=== PATIENT | male | born 1940 | race Caucasian/White ===

== ENCOUNTER 2022-09-14 15:16 | Inpatient (IN) | payer BC ==
[~2022-09-14] VITALS: Ht 185.4 cm; Wt 71.7 kg
--- NOTE | 2022-09-14 15:37 | NUR ---
pt in room. AMS, SOB on NONRebreather 15L sat 89%
--- NOTE | 2022-09-14 15:55 | NUR ---
SWAB FOR COVID19 SENT TO LAB
[2022-09-14] MEDS ORDERED: ACETAMINOPHEN 650 MG/SUPP.RECT RC ONE ×2 (15:58→16:00)
[2022-09-14] MEDS ORDERED: IV NS 0.9% 1,000 ML BAG IV ONE ×3 (16:00→19:00)
[2022-09-14 16:05] LABS: ABG BASE EXCESS -1.5 mmol/L; ABG PCO2 32.5 mmHg (35.0-45.0); ABG PH 7.441 (7.350-7.450); ABG PO2 107.1 mmHg (75.0-100.0); COHb 0.4 % (0.5-1.5); MetHb 0.5 % (0.0-1.5); O2Hb 97.2 % (94.0-97.0); SITE, ABG Right Radial; VENT MODE, BG NRB 100%
[2022-09-14 16:06] LABS: BASOPHILS % (AUTO) 0.3 % (0.0-2.0); EOSINOPHILS % (AUTO) 0.1 % (0.0-6.0); HEMATOCRIT 48 % (39-51); HEMOGLOBIN 15.6 g/dL (13.5-17.5); LYMPHOCYTES # (AUTO) 0.6 K/uL (0.8-4.8); LYMPHOCYTES % (AUTO) 5.2 % (20.0-44.0); MEAN CORPUSCULAR HGB CONC 33 g/dl (31.0-36.0); MEAN CORPUSCULAR VOLUME 86 fL (80-96); MONOCYTES # (AUTO) 0.6 K/uL (0.1-1.30); MONOCYTES % (AUTO) 4.7 % (2.0-12.0); NEUTROPHILS # (AUTO) 11.1 K/uL (1.8-8.9); NEUTROPHILS % (AUTO) 89.7 % (43.0-81.0); PLATELET COUNT (AUTO) 187 K/uL (150-450); RED BLOOD CELL COUNT(AUTO) 5.58 MIL/uL (4.5-6.0); WHITE BLOOD COUNT (AUTO) 12.3 K/uL (4.3-11.0)
[2022-09-14 16:29] LABS: CALCIUM, SERUM 9.6 mg/dL (8.5-10.1); CARBON DIOXIDE 27 mmol/L (21-32); CHLORIDE 107 mmol/L (98-107); CREATININE 1.7 mg/dL (0.6-1.3); GLUCOSE 115 mg/dL (74-106); POTASSIUM 4.5 mmol/L (3.5-5.1); SODIUM SERUM 141 mmol/L (136-145); UREA NITROGEN, BLOOD 30 mg/dL (7-18)
[2022-09-14 16:42] LABS: ALANINE AMINOTRANSFERASE 19 U/L (12-78); ALBUMIN 3.2 g/dL (3.4-5.0); ALKALINE PHOSPHATASE 71 U/L (46-116); ASPARTATE AMINOTRANSFERASE 23 U/L (15-37); BILIRUBIN,DIRECT 0.3 mg/dL (0.0-0.2); BILIRUBIN,TOTAL 1.9 mg/dL (0.2-1.0); TOTAL PROTEIN, SERUM 7.1 g/dL (6.4-8.2)
[2022-09-14] MEDS ORDERED: PIPERACILLIN /TAZOBACTAM 3.375 G in IV D5W 50 ML IV ONE (17:00)
[2022-09-14 17:21] LABS: BILIRUBIN,URINE 1+ (NEGATIVE); COLOR,URINE YELLOW (YELLOW); LEUKOCYTE ESTERASE ,URINE NEGATIVE (NEGATIVE); NITRITE, URINE NEGATIVE (NEGATIVE); PH,URINE 5.5 (5.0-8.0); PROTEIN,URINE 1+ mg/dl (NEGATIVE); UGLUCOSE NEGATIVE (NEGATIVE); UROBILINOGEN,URINE 0.2 EU/dL (0.2)
--- NOTE | 2022-09-14 17:25 | NUR ---
called nursing sup rearding pt bed
[2022-09-14] MEDS ORDERED: MAGNESIUM HYDROXIDE 30 ML UDC PO PRN (18:00)
[2022-09-14] MEDS ORDERED: MAG HYDROX/AL HYDROX/SIMETH 30 ML UDC PO PRN (18:00)
[2022-09-14] MEDS ORDERED: ZOLPIDEM TARTRATE 5 MG TABLET PO PRN (18:00)
[2022-09-14] MEDS ORDERED: ACETAMINOPHEN 325 MG TABLET PO PRN (18:00)
[2022-09-14] MEDS ORDERED: Z GUARD REMEDY 4 OZ OINT TP PRN (18:00)
[2022-09-14] MEDS ORDERED: ONDANSETRON HCL/PF 4 MG/2 ML VIAL IVP PRN (18:00)
[2022-09-14 18:05] LABS: BACTERIA,URINE RARE /HPF (None Seen); RBC,URINE 0-2 /HPF (0-2); URINE AMORPHOUS URATE Few /HPF (None Seen); WBC,URINE 0-2 /HPF (0-3)
--- NOTE | 2022-09-14 18:41 | NUR ---
Holliday Cath inserted 15f
--- NOTE | 2022-09-14 18:49 | NUR ---
room 326 after shift change
[2022-09-14] MEDS ORDERED: KETOROLAC TROMETHAMINE INJ 30 MG/ML VIAL IV ONE (19:00)
[2022-09-14] MEDS ORDERED: KETOROLAC TROMETHAMINE INJ 30 MG/ML VIAL ONE (19:02)
[2022-09-14] MEDS: NOREPINEPHRINE 8 MG in IV NS 0.9% 242 ML IV PRN (19:21)
--- NOTE | 2022-09-14 20:16 | NUR ---
REPORT GIVEN TO QUINTEN NOONAN ICU ROOM 262 FOR TALYA
--- NOTE | 2022-09-14 20:45 | NUR ---
PATIENT TRANSFERED AND ADMITTED PER ACLS PROTOCOL
[2022-09-14 21:15] VITALS: BP 118/59
[2022-09-14] MEDS ORDERED: MAGN400O6 PO (21:19)
[2022-09-14] MEDS ORDERED: TAMS-12 PO (21:19)
[2022-09-14] MEDS ORDERED: MELO-107 PO (21:19)
[2022-09-14] MEDS ORDERED: SENN-291 PO (21:19)
[2022-09-14] MEDS ORDERED: ACET-73 PO (21:19)
[2022-09-14] MEDS ORDERED: FINA5TAB3 PO (21:19)
[2022-09-14] MEDS ORDERED: SIME80TA15 PO (21:19)
[2022-09-14] MEDS ORDERED: POLY17PO4 PO (21:19)
[2022-09-14] MEDS: ENOXAPARIN SODIUM 30 MG/0.3 ML DISP.SYRIN SQ SCH (21:23)
[2022-09-14] MEDS: IV NS 0.9% 250 ML IV PRN (21:26)
[2022-09-14 21:35] VITALS: BP 99/48
[2022-09-14 21:45] VITALS: BP 134/63
[2022-09-14 22:00] VITALS: BP 121/61
[2022-09-14 22:15] VITALS: BP 126/55
--- NOTE | 2022-09-14 22:35 | NUR ---
FIRE PATROL. ADMISSION. PT BEING ADMITTED FROM ICU FOR ASPIRATION PNA, SEPSIS. PT IA AWAKE. LETHARGIC. OXYGEN NONREBREATHER. SAT 99%. NO ACUTE DISTRESS NOTED. CVARDIAC MONITOR SHOWING NSR. IV RT AND LT HAD PIV. LEVOPHED STARTED FROM ER. 0.1 MCG/KG/MIN FC PATENT. HOB ELEVATED. WILL CONTINUE TO MONITOR VITALS
[2022-09-14 23:00] VITALS: BP 110/51
[2022-09-15] VITALS (90 sets, daily range): BP systolic 84–155; BP diastolic 14–87
[2022-09-15] MEDS: PIPERACILLIN /TAZOBACTAM 3.375 G in IV D5W 50 ML IV SCH ×4 (00:23→17:03)
--- NOTE | 2022-09-15 03:45 | NUR ---
TRIPE COOKER. AM CARE GIVEN. REMAINING SAMR OXYGEN TOLERATED WELL. SAT 98%, NO ACUTE DISTRESS NOTED. REFRIGERATION LEAD SHOWING NSR.IV RT HAND 20G. LEVOPHED 0.04MCG/KG/MIN. HOB ELEVATED, TURN AND REPOSITION Q2H. WILL CONTINUE TO MONITOR VITALS.
[2022-09-15 05:11] LABS: BASOPHILS % (AUTO) 0.1 % (0.0-2.0); EOSINOPHILS % (AUTO) 0.1 % (0.0-6.0); HEMATOCRIT 39 % (39-51); HEMOGLOBIN 12.6 g/dL (13.5-17.5); LYMPHOCYTES # (AUTO) 1.2 K/uL (0.8-4.8); LYMPHOCYTES % (AUTO) 7.8 % (20.0-44.0); MEAN CORPUSCULAR HGB CONC 32 g/dl (31.0-36.0); MEAN CORPUSCULAR VOLUME 86 fL (80-96); MONOCYTES # (AUTO) 0.9 K/uL (0.1-1.30); MONOCYTES % (AUTO) 5.7 % (2.0-12.0); NEUTROPHILS # (AUTO) 13.3 K/uL (1.8-8.9); NEUTROPHILS % (AUTO) 86.3 % (43.0-81.0); PLATELET COUNT (AUTO) 172 K/uL (150-450); RED BLOOD CELL COUNT(AUTO) 4.53 MIL/uL (4.5-6.0); WHITE BLOOD COUNT (AUTO) 15.4 K/uL (4.3-11.0)
[2022-09-15 05:14] LABS: CALCIUM, SERUM 8.8 mg/dL (8.5-10.1); CARBON DIOXIDE 20 mmol/L (21-32); CHLORIDE 111 mmol/L (98-107); CREATININE 1.7 mg/dL (0.6-1.3); GLUCOSE 117 mg/dL (74-106); MAGNESIUM 1.6 mg/dL (1.8-2.4); PHOSPHORUS 3.9 mg/dL (2.5-4.9); POTASSIUM 4.3 mmol/L (3.5-5.1); SODIUM SERUM 141 mmol/L (136-145); UREA NITROGEN, BLOOD 36 mg/dL (7-18)
--- NOTE | 2022-09-15 07:30 | NUR ---
RN OPENING NOTE PT RECEIVED IN BED WITH HOB >30 DEGREES. PT IS ON 10L NON REBREATHER O2 SAT 100% TOLERATING WELL NO SIGNS OF DISTRESS OR LABORED BREATHING. PT IS A/OX3. FC IS IN PLACE DRAINING HEMATURIA AT THIS TIME. IV ACCESS R RIVERA 20G AND L AC 20 G INFUSING WITH LEVO @0.05MCG. BED IS LOCKED IN LOWEST POSITION, CALL CANCINO IS WITHIN REACH AND ALL HOSPITAL SAFETY MEASURES ARE IN PLACE. WILL CONTINUE TO MONITOR THIS SHIFT.
--- NOTE | 2022-09-15 07:40 | NUR ---
WOUND CARE CONSULT: PT PRESENTS WITH LEFT CHEEK DRY LESION AND SACRAL STAGE 3 PRESSURE ULCER, PRESENT ON ADMISSION. DR PEARCE CALLED FOR SURGICAL CONSULT. DISCUSSED WOUND CARE AND SKIN PROTECTION RECOMMENDATIONS WITH NURSING STAFF. IN AGREEMENT WITH PLAN OF CARE. Addendum: 09/15/22 at 0741 by TWAN BINGHAM WNDNU Amended: Links added. Addendum: 09/15/22 at 0743 by TWAN BINGHAM WNDNU PT STATES HAS HAD SACRAL WOUND FOR MORE THAN 6 MONTHS AND IS BEDBOUND.
--- NOTE | 2022-09-15 08:00 | NUR ---
RN NOTE: CODE STATUS PT IS A/OX3 AND STATED THAT HE WISHES TO BE DNR/DNI. PROVIDER HAS BEEN NOTIFIED OF PATIENT'S WISHES.
[2022-09-15 08:36] LABS: ABG BASE EXCESS -5.9 mmol/L; ABG OXYGEN SATURATION 99.2 % (92.0-98.5); ABG PCO2 28.6 mmHg (35.0-45.0); ABG PH 7.402 (7.350-7.450); ABG PO2 211.1 mmHg (75.0-100.0); AaDO2 473.3 mmHg; COHb 0.2 % (0.5-1.5); MetHb 0.3 % (0.0-1.5); O2Hb 98.7 % (94.0-97.0); SITE, ABG Right Radial; VENT MODE, BG NRB 15 LPM
--- NOTE | 2022-09-15 08:48 | NUR ---
RN NOTE: CODE STATUS PT SPOKE WITH MD AND STATES HE WISHES TO REMAIN FULL CODE AT THIS TIME.
[2022-09-15] MEDS ORDERED: ENOXAPARIN SODIUM 30 MG/0.3 ML DISP.SYRIN IV ONE (09:00)
[2022-09-15] MEDS: Magnesium 1GM/D5W 100ML PREMIX 100 ML IV SCH ×2 (09:01→10:02)
[2022-09-15] MEDS: methylPREDNISolone SOD SUCC 40 MG/ML VIAL IV SCH ×2 (09:40→17:03)
[2022-09-15] MEDS: THERAHONEY GEL 1.5 OZ TUBE TP SCH (09:40)
[2022-09-15] MEDS: IV NS 0.9% 1,000 ML IV PRN ×2 (09:54→18:09)
[2022-09-15] MEDS: IPRATROPIUM NEB FS 0.5 MG/2.5 ML AMPUL.NEB NEB SCH ×3 (10:00→20:07)
[2022-09-15] MEDS ORDERED: MENT71OI2 TP (10:16)
[2022-09-15] MEDS: NOREPINEPHRINE 8 MG in IV NS 0.9% 242 ML IV PRN (13:28)
--- NOTE | 2022-09-15 13:28 | NUR ---
RN NOTE: IV FLUIDS PER DR. MARRUFO, CHANGE NS TO 100ML/HR
--- NOTE | 2022-09-15 15:00 | NUR ---
RN NOTE: SPECIMEN COLLECTED INFLUENZA RAPID ANTIGEN SPECIMEN COLLECTED AT THIS TIME AND DELIVERED TO LAB
[2022-09-15] MEDS: PROSOURCE / PROSTAT (PYXIS) 30 ML UDC GT SCH (17:00)
[2022-09-15] MEDS: ENSURE ENLIVE 237 ML LIQUID (VANILLA) PO SCH (17:03)
[2022-09-15] MEDS: IV NS 0.9% 250 ML IV PRN (18:08)
--- NOTE | 2022-09-15 18:47 | NUR ---
RN CLOSING NOTE PT IS IN BED WITH HOB >40DEGREES. PT IS ON NC 4 L SAT 100% TOLERATING WELL NO SIGNS OF DISTRESS OR LABORED BREATHING. PT IS A/OX3 AND IS NOW ON A PUREE DIET. FC IS IN PLACE DRAINING HEMATURIA AT THIS TIME -800ML MD IS AWARE. IV ACCESS R RIVERA 20G AND L AC 20 G INFUSING WITH LEVO @0.02MCG AND NS@100ML/HR. BED IS LOCKED IN LOWEST POSITION, CALL CANCINO IS WITHIN REACH AND ALL HOSPITAL SAFETY MEASURES ARE IN PLACE. WILL ENDORSE TO AUCTIONEER ART NURSE FOR TALYA.
--- NOTE | 2022-09-15 19:30 | NUR ---
PT AWAKE IN BED A/OX3. WITH HOB >40DEGREES. PT IS ON NC 4 L SAT 100%. TOLERATING WELL, NOT IN DISTRESS, RESPIRATION EVEN AND UNLABORED, ON A PUREE DIET. FC IS IN PLACE DRAINING HEMATURIA AT THIS TIME, IS AWARE. IV ACCESS R RIVERA 20G AND L AC 20 G INFUSING LEVO @ 0.02MCG AND NS@100ML/HR. SAFETY MEASURES IN PLACE. CALL LIGHT AND TABLE WITHIN REACH. WILL CONTINUE PLAN OF CARE.
[2022-09-15] MEDS: ENOXAPARIN SODIUM 30 MG/0.3 ML DISP.SYRIN SQ SCH (20:23)
[2022-09-16] VITALS (46 sets, daily range): BP systolic 84–145; BP diastolic 36–79
[2022-09-16] MEDS: PIPERACILLIN /TAZOBACTAM 3.375 G in IV D5W 50 ML IV SCH ×4 (00:03→17:00)
[2022-09-16] MEDS: methylPREDNISolone SOD SUCC 40 MG/ML VIAL IV SCH ×3 (01:10→16:22)
[2022-09-16] MEDS: IPRATROPIUM NEB FS 0.5 MG/2.5 ML AMPUL.NEB NEB SCH ×4 (01:52→19:37)
[2022-09-16 04:09] LABS: BASOPHILS % (AUTO) 0.1 % (0.0-2.0); HEMATOCRIT 34 % (39-51); HEMOGLOBIN 11.4 g/dL (13.5-17.5); LYMPHOCYTES # (AUTO) 0.6 K/uL (0.8-4.8); LYMPHOCYTES % (AUTO) 7.2 % (20.0-44.0); MEAN CORPUSCULAR HGB CONC 33 g/dl (31.0-36.0); MEAN CORPUSCULAR VOLUME 86 fL (80-96); MONOCYTES # (AUTO) 0.3 K/uL (0.1-1.30); MONOCYTES % (AUTO) 4.1 % (2.0-12.0); NEUTROPHILS # (AUTO) 7.2 K/uL (1.8-8.9); NEUTROPHILS % (AUTO) 88.6 % (43.0-81.0); PLATELET COUNT (AUTO) 117 K/uL (150-450); RED BLOOD CELL COUNT(AUTO) 3.98 MIL/uL (4.5-6.0); WHITE BLOOD COUNT (AUTO) 8.1 K/uL (4.3-11.0)
[2022-09-16] MEDS: IV NS 0.9% 1,000 ML IV PRN ×2 (04:19→14:07)
[2022-09-16 04:27] LABS: ALANINE AMINOTRANSFERASE 13 U/L (12-78); ALBUMIN 2.2 g/dL (3.4-5.0); ALKALINE PHOSPHATASE 47 U/L (46-116); ASPARTATE AMINOTRANSFERASE 42 U/L (15-37); BILIRUBIN,TOTAL 1.4 mg/dL (0.2-1.0); CALCIUM, SERUM 9.3 mg/dL (8.5-10.1); CARBON DIOXIDE 21 mmol/L (21-32); CHLORIDE 111 mmol/L (98-107); CREATININE 1.4 mg/dL (0.6-1.3); GLUCOSE 130 mg/dL (74-106); MAGNESIUM 2.3 mg/dL (1.8-2.4); PHOSPHORUS 3.2 mg/dL (2.5-4.9); POTASSIUM 4.4 mmol/L (3.5-5.1); SODIUM SERUM 141 mmol/L (136-145); TOTAL PROTEIN, SERUM 5.3 g/dL (6.4-8.2); UREA NITROGEN, BLOOD 32 mg/dL (7-18)
--- NOTE | 2022-09-16 07:15 | NUR ---
COMPUTER SYSTEMS HARDWARE ANALYST OPENING NOTES RECEIVED PT ASLEEP IN BED A/OX3. WITH HOB >40DEGREES. PT IS ON NC AT 3LPM. 02SAT AT 100%. TOLERATING WELL, NOT IN DISTRESS, RESPIRATION EVEN AND UNLABORED, DENIES ANY PAIN. FC IS IN PLACE DRAINING WITH TEA COLORED URINE. IV ACCESS ON RT HAND 20G, JESUS ML 18G. INFUSING LEVO @ 0.01MCG/KG/MIN AND NS@100ML/HR. ON TELE MONITOR WITH SB HR 50'S. SAFETY MEASURES MAINTAINED. CALL LIGHT AND TABLE WITHIN REACH. PLAN OF CARE CONTINUE.
--- NOTE | 2022-09-16 07:37 | NUR ---
PT ASLEEP IN BED A/OX3. WITH HOB >40DEGREES. PT IS ON NC AT 3LPM. 02SAT AT 100%. TOLERATING WELL, NOT IN DISTRESS, RESPIRATION EVEN AND UNLABORED, ON A PUREE DIET. FC IS IN PLACE DRAINING HEMATURIA AT THIS TIME, MD IS AWARE. IV ACCESS ON RT HAND 20G, JESUS ML 18G. INFUSING LEVO @ 0.01MCG/KG/MIN AND NS@100ML/HR. NEEDS ATTENDED. DUE MEDS GIVEN. SAFETY MEASURES MAINTAINED. CALL LIGHT AND TABLE WITHIN REACH. WILL ENDORSE TO NEXT NURSE ON DUTY FOR CONTINUITY OF CARE.
--- NOTE | 2022-09-16 07:45 | NUR ---
DR. MARRUFO AT BEDSIDE, WITH ORDER THAT PATIENT DIET CAN BE ADVANCED TO MECHANICAL SOFT FINELY CHOPPED, NOTED AND CARRIED OUT.
--- NOTE | 2022-09-16 08:00 | NUR ---
TURN OFF LEVO BP 140'S.
[2022-09-16] MEDS: THERAHONEY GEL 1.5 OZ TUBE TP SCH (08:02)
[2022-09-16] MEDS: ENSURE ENLIVE 237 ML LIQUID (VANILLA) PO SCH ×2 (08:06→16:19)
[2022-09-16] MEDS: PROSOURCE / PROSTAT (PYXIS) 30 ML UDC GT SCH ×2 (08:12→16:19)
--- NOTE | 2022-09-16 09:03 | NUR ---
PATIENT FINISHED 75% OF THE BREAKFAST, TOLERATED MECHANICAL SOFT FINELY CHOPPED AND THIN LIQUIDS, PATIENT IS ALERT AND VERBALLY RESPONSIVE, NO ESPIODE OF COUGHING NOTED.
--- NOTE | 2022-09-16 09:58 | NUR ---
SEEN BY ST DAVIL[facility], PATIENT TOLERATED THIN LIQUID, NO COUGHING NOTED.
[2022-09-16] MEDS ORDERED: POLYVINYL ALCOHOL 15 ML BOTTLE EACHEYE PRN ×2 (10:30)
--- NOTE | 2022-09-16 10:30 | NUR ---
INFORMED DR. MARRUFO THAT PATIENT IS HAVING DRY EYES, PATIENT STATED HE USES ARTIFICIAL TEARS, WITH NEW ORDER FROM DR. MARRUFO ARTIFICIAL TEARS PRN, NOTED AND CARRIED OUT.
--- NOTE | 2022-09-16 15:51 | NUR ---
RECEIVED RESULT FROM [facility] PATIENT IS POSITIVE FOR MRSA OF THE RIGHT NARES, BACTRORAN OINTMENT ORDER PLACED.
--- NOTE | 2022-09-16 17:55 | NUR ---
ORAL SURGERY PHYSICIAN NOTES PT AWAKE IN BED A/OX3. WITH HOB >40DEGREES. PT IS ON NC AT 2LPM. 02SAT AT 98-99%, TOLERATING WELL, NOT IN DISTRESS, RESPIRATION EVEN AND UNLABORED, DENIES ANY PAIN. FC IS IN PLACE DRAINING WITH TEA COLORED URINE. IV ACCESS ON RT HAND 20G, JESUS ML 18G, INFUSING NS@100ML/HR. ON TELE MONITOR WITH SB HR 50'S. SAFETY MEASURES MAINTAINED. CALL LIGHT AND TABLE WITHIN REACH. PLAN OF CARE CONTINUE.
--- NOTE | 2022-09-16 18:00 | NUR ---
LIBRARY MONITOR NOTES RECEIVED PT FROM HOGSHEAD MAT INSPECTOR LUZ BYRD VIA BED, PT IS AWAKE, ALERT AND ORIENTED, ABLE TO MAKE NEEDS KNOWN, NO COMPLAINT OF PAIN, NOT IN DISTRESS, ON O2 AT 2LPM VIA NASAL CANULA WITH O2 SAT OF 95%, DYKES IN PLACE, DRAINING TEA COLORED URINE, ROOM SET UP ORIENTATION PROVIDED, VERBALIZED UNDERSTANDING, VITALS TAKEN AND RECORDED.
--- NOTE | 2022-09-16 18:00 | NUR ---
TRANSFERRED PATIENT TO [facility] DEPT ROOM 327 BED 1 VIA ACLS PROTOCOL, GAVE REPORT TO KIMO NOONAN, TRANSFERRED PATIENT WITH ALL HIS PERSONAL BELONGINGS AND MEDICATIONS.
--- NOTE | 2022-09-16 19:05 | NUR ---
FRONT OFFICE SPEC OPENING NOTE PT IS SITTING IN THE BED, ALERT AND ORIENTED, AO X 4. PT IS ON 1 LPM OXYGEN VIA NC, TOLERATED WELL. NO S/S OF DISTRESS OR SOB. PT IS ON EXTERNAL STACKING MACHINE OPERATOR, ON THE MONITOR, PT IS SB WITH HR AT 40S. IV ACCESS ONE IS AT HIS R HAND, #20G, SL. ANOTHER ONE IS AT HIS L UA, MID-LINE, #18G, RUNNING NS@100 ML/HR. BOTH IV SITES ARE PATENT AND INTACT. PT HAS DYKES CATHETER, DRAINING YASHIRA COLOR URINE FREELY BY THE GRAVITY. SAFETY MEASURES ARE IN PLACED: BED IN LOWEST AND LOCKED POSITION; SIDE RAILS UP X 3; BED ALARM IS SET; CALL LIGHT AND TABLE ARE WITHIN REACH. WILL CONTINUE MONITORING THE PT AND PROVIDE THE CARE PT NEEDS.
[2022-09-16] MEDS: MUPIROCIN OINT 2% 22 GM TUBE NS SCH (20:12)
[2022-09-16] MEDS: ENOXAPARIN SODIUM 30 MG/0.3 ML DISP.SYRIN SQ SCH (20:14)
[2022-09-17] VITALS (7 sets, daily range): BP systolic 106–144; BP diastolic 62–81
[2022-09-17] MEDS: PIPERACILLIN /TAZOBACTAM 3.375 G in IV D5W 50 ML IV SCH ×4 (00:17→17:14)
[2022-09-17] MEDS: methylPREDNISolone SOD SUCC 40 MG/ML VIAL IV SCH ×2 (00:38→08:39)
--- NOTE | 2022-09-17 00:50 | NUR ---
SUPPLIES PACKER NOTE PT STATES HE NEEDS SLEEPING PILL. CONTACTED Georgie ISAACS AND RECEIVED ORDER.
[2022-09-17] MEDS: IPRATROPIUM NEB FS 0.5 MG/2.5 ML AMPUL.NEB NEB SCH ×4 (01:30→20:22)
[2022-09-17] MEDS: TEMAZEPAM 15 MG CAPSULE PO PRN ×2 (01:38→22:10)
--- NOTE | 2022-09-17 01:40 | NUR ---
CARE COORDINATOR NOTE PRN PO MEDICATION, RESTORIL 15 MG, ADMINISTERED TO THE PT FOR INSOMNIA PER PT REQUEST.
[2022-09-17 06:20] LABS: HEMATOCRIT 35 % (39-51); HEMOGLOBIN 11.5 g/dL (13.5-17.5); LYMPHOCYTES # (AUTO) 0.6 K/uL (0.8-4.8); MEAN CORPUSCULAR HGB CONC 33 g/dl (31.0-36.0); MEAN CORPUSCULAR VOLUME 88 fL (80-96); MONOCYTES # (AUTO) 0.2 K/uL (0.1-1.30); MONOCYTES % (AUTO) 5.2 % (2.0-12.0); NEUTROPHILS # (AUTO) 3.5 K/uL (1.8-8.9); NEUTROPHILS % (AUTO) 80.8 % (43.0-81.0); PLATELET COUNT (AUTO) 115 K/uL (150-450); RED BLOOD CELL COUNT(AUTO) 4.03 MIL/uL (4.5-6.0); WHITE BLOOD COUNT (AUTO) 4.3 K/uL (4.3-11.0)
--- NOTE | 2022-09-17 07:03 | NUR ---
SOCIAL WORK PROFESSOR CLOSING NOTE PT IS SITTING IN THE BED, ALERT AND ORIENTED, AO X 4. PT IS ON RA, TOLERATED WELL. NO S/S OF DISTRESS OR SOB. PT IS ON EXTERNAL PLC CONTROLS ENGINEER, ON THE MONITOR, PT IS SB WITH HR AT 40S. IV ACCESS ONE IS AT HIS R HAND, #20G, SL. ANOTHER ONE IS AT HIS L UA, MID-LINE, #18G, RUNNING NS@100 ML/HR. BOTH IV SITES ARE PATENT AND INTACT. PT HAS DYKES CATHETER, DRAINING YASHIRA COLOR URINE FREELY BY THE GRAVITY. URINE OUTPUT IS 400 DURING STERILIZATION TECH. SAFETY MEASURES ARE IN PLACED: BED IN LOWEST AND LOCKED POSITION; SIDE RAILS UP X 3; BED ALARM IS SET; CALL LIGHT AND TABLE ARE WITHIN REACH. WILL ENDORSE NEXT SHIFT NURSE FOR CONTINUING PT CARE.
[2022-09-17 07:08] LABS: CALCIUM, SERUM 9.3 mg/dL (8.5-10.1); CARBON DIOXIDE 20 mmol/L (21-32); CHLORIDE 112 mmol/L (98-107); CREATININE 1.1 mg/dL (0.6-1.3); GLUCOSE 131 mg/dL (74-106); POTASSIUM 4.2 mmol/L (3.5-5.1); SODIUM SERUM 141 mmol/L (136-145); UREA NITROGEN, BLOOD 36 mg/dL (7-18)
--- NOTE | 2022-09-17 07:45 | NUR ---
BRIM STITCHER OPENING NOTE PT SLEEPING IN THE BED, EASILY BEING AWAKENED, A/O X 4. PT IS ON RA, TOLERATED WELL. NO S/S OF DISTRESS OR SOB. PT IS ON EXTERNAL CRYPTOGRAPHIC VULNERABILITY ANALYST, READING SB @49BPM. IV ACCESS ONE IS AT HIS R HAND, #20G, SL. ANOTHER ONE IS AT HIS L UA, ML, #18G, RUNNING NS@100 ML/HR. BOTH IV SITES ARE PATENT AND INTACT. PT HAS DYKES CATHETER, DRAINING YASHIRA COLOR URINE BY THE GRAVITY. SAFETY MEASURES ARE IN PLACED: BED IN LOWEST AND LOCKED POSITION; SIDE RAILS UP X 3; BED ALARM IS SET; CALL LIGHT AND TABLE ARE WITHIN REACH. WILL CONTINUE MONITORING THE PT AND PROVIDE THE CARE PT NEEDS.
[2022-09-17] MEDS: ENSURE ENLIVE 237 ML LIQUID (VANILLA) PO SCH ×2 (08:38→16:30)
[2022-09-17] MEDS: PROSOURCE / PROSTAT (PYXIS) 30 ML UDC GT SCH ×2 (08:38→16:30)
[2022-09-17] MEDS: MUPIROCIN OINT 2% 22 GM TUBE NS SCH ×2 (08:39→21:16)
[2022-09-17] MEDS: THERAHONEY GEL 1.5 OZ TUBE TP SCH (10:34)
[2022-09-17] MEDS: IV NS 0.9% 1,000 ML IV PRN (12:43)
--- NOTE | 2022-09-17 18:35 | NUR ---
RESIDENTIAL FIELD MANAGER CLOSING NOTE PT IS RESTING IN THE BED, AO X 4. PT IS ON RA, TOLERATED WELL. NO S/S OF DISTRESS OR SOB. PT IS ON EXTERNAL NECK CUTTER, READING SR @76 BPM. IV ACCESS ONE IS AT HIS R HAND, #20G, SL. ANOTHER ONE IS AT HIS L UA, MID-LINE, #18G, RUNNING NS@100 ML/HR. BOTH IV SITES ARE PATENT AND INTACT. KEPT PT C/I/D. REPOSITIONED PT Q2H. PT HAS DYKES CATHETER, DRAINING YASHIRA COLOR URINE FREELY BY THE GRAVITY. URINE OUTPUT 500ML DURING SCIENTIFIC RESEARCH ASSOCIATE. SAFETY MEASURES ARE IN PLACED: BED IN LOWEST AND LOCKED POSITION; SIDE RAILS UP X 3; BED ALARM IS ON; CALL LIGHT AND TABLE ARE WITHIN REACH. WILL ENDORSE NEXT SHIFT NURSE FOR CONTINUING PT CARE.
--- NOTE | 2022-09-17 19:20 | NUR ---
EFFICIENCY ANALYST OPENING NOTE RECEIVED PATIENT IN BED; AWAKE, ALERT AND ORIENTED X 4. ON O2 INHALATION @ 2 LPM VIA NASAL CANNULA; TOLERATING WELL. AFEBRILE. BREATHING EVEN AND NONLABORED. ON EXTERNAL CARDIAC MONITORING WHICH READS SINUS BRADYCARDIA HR-46 BPM. WITH IV ACCESS ON RIGHT HAND 20g; PATENT, INTACT AND SL. WITH LEFT UPPER ARM MIDLINE 18g; PATENT AND INTACT RUNNING WITH NS 1L REGULATED @ 100 ML/HR; FLUSHES WELL. ABLE TO MAKE NEEDS KNOWN. SAFETY PRECAUTIONS IMPLEMENTED: CALL LIGHT AND TABLE WITHIN REACH, SIDE RAILS UP X 3, BED IN LOWEST LOCKED POSITION. WILL CONTINUE TO MONITOR THROUGHOUT SHIFT.
[2022-09-17] MEDS: ENOXAPARIN SODIUM 30 MG/0.3 ML DISP.SYRIN SQ SCH (21:42)
[2022-09-18] VITALS: BP 120/67
[2022-09-18] MEDS: PIPERACILLIN /TAZOBACTAM 3.375 G in IV D5W 50 ML IV SCH ×4 (00:01→17:10)
[2022-09-18] MEDS: IV NS 0.9% 1,000 ML IV PRN ×2 (00:09→10:52)
[2022-09-18] MEDS: IPRATROPIUM NEB FS 0.5 MG/2.5 ML AMPUL.NEB NEB SCH ×4 (01:12→20:28)
[2022-09-18 04:00] VITALS: BP 113/63
--- NOTE | 2022-09-18 06:40 | NUR ---
SOFTWARE VERIFICATION ENGINEER CLOSING NOTE PATIENT IN BED; AWAKE, A/O X 4. ON O2 INHALATION @ 2 LPM VIA NASAL CANNULA; TOLERATING WELL. AFEBRILE. BREATHING EVEN AND NONLABORED. ON EXTERNAL CARDIAC MONITORING WHICH READS SINUS BRADYCARDIA HR-46 BPM. WITH IV ACCESS ON RIGHT HAND 20g; PATENT, INTACT AND SL. WITH LEFT UPPER ARM MIDLINE 18g; PATENT AND INTACT RUNNING WITH NS 1L REGULATED @ 100 ML/HR; FLUSHES WELL. SAFETY PRECAUTIONS IN PLACE: CALL LIGHT AND TABLE WITHIN REACH, SIDE RAILS UP X 3, BED IN LOWEST LOCKED POSITION. ENDORSED TO MORNING SHIFT FOR TALYA.
[2022-09-18 06:57] LABS: HEMATOCRIT 33 % (39-51); HEMOGLOBIN 10.9 g/dL (13.5-17.5); LYMPHOCYTES # (AUTO) 0.8 K/uL (0.8-4.8); LYMPHOCYTES % (AUTO) 11.3 % (20.0-44.0); MEAN CORPUSCULAR HGB CONC 33 g/dl (31.0-36.0); MEAN CORPUSCULAR VOLUME 86 fL (80-96); MONOCYTES # (AUTO) 0.6 K/uL (0.1-1.30); MONOCYTES % (AUTO) 8.8 % (2.0-12.0); NEUTROPHILS # (AUTO) 5.5 K/uL (1.8-8.9); NEUTROPHILS % (AUTO) 79.9 % (43.0-81.0); PLATELET COUNT (AUTO) 130 K/uL (150-450); RED BLOOD CELL COUNT(AUTO) 3.87 MIL/uL (4.5-6.0); WHITE BLOOD COUNT (AUTO) 6.9 K/uL (4.3-11.0)
[2022-09-18 07:29] LABS: CARBON DIOXIDE 22 mmol/L (21-32); CHLORIDE 111 mmol/L (98-107); GLUCOSE 105 mg/dL (74-106); POTASSIUM 3.8 mmol/L (3.5-5.1); SODIUM SERUM 138 mmol/L (136-145); UREA NITROGEN, BLOOD 35 mg/dL (7-18)
--- NOTE | 2022-09-18 07:55 | NUR ---
WORKERS COMPENSATION ADJUSTER OPENING NOTE RECEIVED PATIENT IN BED; AWAKE, ALERT AND ORIENTED X 4. ABLE TO MAKE NEEDS KNOWN. ON O2 INHALATION @ 2 LPM VIA NASAL CANNULA; TOLERATING WELL. AFEBRILE. BREATHING EVEN AND NONLABORED. ON EXTERNAL SHOULDER JOINER READING SB @47 BPM. WITH IV ACCESS ON RIGHT HAND 20g; PATENT, INTACT AND SL. WITH LEFT UPPER ARM MIDLINE 18g; PATENT AND INTACT RUNNING WITH NS @ 100 ML/HR; FLUSHES WELL. SAFETY PRECAUTIONS IMPLEMENTED: CALL LIGHT AND TABLE WITHIN REACH, SIDE RAILS UP X 3, BED IN LOWEST LOCKED POSITION. WILL CONTINUE TO MONITOR THROUGHOUT SHIFT.
[2022-09-18] MEDS: PROSOURCE / PROSTAT (PYXIS) 30 ML UDC GT SCH ×2 (08:39→16:21)
[2022-09-18] MEDS: ENSURE ENLIVE 237 ML LIQUID (VANILLA) PO SCH ×2 (08:39→16:21)
[2022-09-18] MEDS: THERAHONEY GEL 1.5 OZ TUBE TP SCH (08:39)
[2022-09-18] MEDS: MUPIROCIN OINT 2% 22 GM TUBE NS SCH ×2 (08:39→21:50)
[2022-09-18] MEDS: methylPREDNISolone SOD SUCC 40 MG/ML VIAL IV SCH (08:40)
--- NOTE | 2022-09-18 18:38 | NUR ---
RN CLOSING NOTE PATIENT IN BED; AWAKE, A/O X 4. ON RA, BREATHING EVEN AND NONLABORED, TOLERATING WELL. AFEBRILE. DC TELE PER MD ORDER. WITH IV ACCESS ON RIGHT HAND 20g; PATENT, INTACT AND SL. WITH LEFT UPPER ARM MIDLINE 18g; PATENT AND INTACT RUNNING NS @ 100 ML/HR; FLUSHES WELL. WITH INTACT DYKES CATHETER, DRAINING WELL, YASHIRA COLOR, 600 ML URINE OUTPUT DURING THE SHIFT. SAFETY PRECAUTIONS IN PLACE: CALL LIGHT AND TABLE WITHIN REACH, SIDE RAILS UP X 3, BED IN LOWEST LOCKED POSITION. ENDORSED TO CATEGORY CONSULTANT FOR TALYA.
--- NOTE | 2022-09-18 19:25 | NUR ---
MS RN OPENING NOTE RECEIVED PATIENT IN BED; AWAKE, ALERT AND ORIENTED X 4. ON ROOM AIR; TOLERATING WELL. AFEBRILE. BREATHING EVEN AND NONLABORED. DENIES ANY PAIN OR DISCOMFORT AT THIS TIME. WITH IV ACCESS ON RIGHT HAND 20g; PATENT, INTACT AND SL. WITH LEFT UPPER ARM MIDLINE 18g; PATENT AND INTACT RUNNING WITH NS 1L REGULATED @ 100 ML/HR; FLUSHES WELL. WITH DYKES CATH IN PLACE RUNNING BY GRAVITY TO RED ORANGE URINE OUTPUT. ABLE TO MAKE NEEDS KNOWN. SAFETY PRECAUTIONS IMPLEMENTED: CALL LIGHT AND TABLE WITHIN REACH, SIDE RAILS UP X 3, BED IN LOWEST LOCKED POSITION. WILL CONTINUE TO MONITOR THROUGHOUT SHIFT.
[2022-09-18 20:00] VITALS: BP 112/59
[2022-09-18] MEDS: ENOXAPARIN SODIUM 30 MG/0.3 ML DISP.SYRIN SQ SCH (21:52)
[2022-09-18] MEDS: TEMAZEPAM 15 MG CAPSULE PO PRN (22:06)
[2022-09-19] MEDS: PIPERACILLIN /TAZOBACTAM 3.375 G in IV D5W 50 ML IV SCH ×3 (00:01→11:49)
[2022-09-19] MEDS: IV NS 0.9% 1,000 ML IV PRN (00:20)
[2022-09-19] MEDS: IPRATROPIUM NEB FS 0.5 MG/2.5 ML AMPUL.NEB NEB SCH ×3 (01:30→13:30)
--- NOTE | 2022-09-19 06:45 | NUR ---
MS RN CLOSING NOTE PATIENT IN BED; AWAKE, A/OX 4. STABLE ON ROOM AIR. IN NO ACUTE DISTRESS. DENIES ANY PAIN OR DISCOMFORT. WITH IV ACCESS ON RIGHT HAND 20g; PATENT, INTACT AND SL. WITH LEFT UPPER ARM MIDLINE 18g; PATENT AND INTACT RUNNING WITH NS 1L REGULATED @ 100 ML/HR; FLUSHING WELL. WITH DYKES CATH IN PLACE; INTACT DRAINING BY GRAVITY TO RED ORANGE OUTPUT. ALL DUE MEDS GIVEN ORDERED. ALL NEEDS ATTENDED. SAFETY PRECAUTIONS IN PLACE: CALL LIGHT AND TABLE WITHIN REACH, SIDE RAILS UP X 3, BED IN LOWEST LOCKED POSITION. ENDORSED TO MORNING SHIFT FOR TALYA.
[2022-09-19 07:17] LABS: BASOPHILS % (AUTO) 0.1 % (0.0-2.0); EOSINOPHILS % (AUTO) 0.3 % (0.0-6.0); HEMATOCRIT 34 % (39-51); HEMOGLOBIN 11.5 g/dL (13.5-17.5); LYMPHOCYTES % (AUTO) 14.6 % (20.0-44.0); MEAN CORPUSCULAR HGB CONC 34 g/dl (31.0-36.0); MEAN CORPUSCULAR VOLUME 85 fL (80-96); MONOCYTES # (AUTO) 0.6 K/uL (0.1-1.30); MONOCYTES % (AUTO) 9.2 % (2.0-12.0); NEUTROPHILS # (AUTO) 5.1 K/uL (1.8-8.9); NEUTROPHILS % (AUTO) 75.8 % (43.0-81.0); PLATELET COUNT (AUTO) 131 K/uL (150-450); RED BLOOD CELL COUNT(AUTO) 4.04 MIL/uL (4.5-6.0); WHITE BLOOD COUNT (AUTO) 6.7 K/uL (4.3-11.0)
[2022-09-19 07:35] LABS: CALCIUM, SERUM 8.9 mg/dL (8.5-10.1); CARBON DIOXIDE 24 mmol/L (21-32); CHLORIDE 110 mmol/L (98-107); GLUCOSE 104 mg/dL (74-106); POTASSIUM 3.8 mmol/L (3.5-5.1); SODIUM SERUM 137 mmol/L (136-145); UREA NITROGEN, BLOOD 31 mg/dL (7-18)
[2022-09-19 08:00] VITALS: BP 124/67
--- NOTE | 2022-09-19 08:00 | NUR ---
RN OPENING NOTE RECEIVED PATIENT IN BED AO x 4, ABLE TO RESPONDS PHYSICAL STIMULI. RESPIRATORY EVEN AND UNLABORED IN ROOM AIR. IN NO ACUTE RESPIRATORY DISTRESS OBSERVED. SKIN IS WARM TO TOUCH, KEEP CLEAN/DRY. KEPT ELEVATED HOB FOR ASPIRATION PRECAUTION AND ENSURE AIRWAY, ALSO LOWEST BED POSITIONED. BED ALARM IS ON AT ALL TIMES FOR SAFETY. CALL LIGHT WITHIN REACH, WILL CONTINUE TO MONITOR.
[2022-09-19] MEDS: PROSOURCE / PROSTAT (PYXIS) 30 ML UDC GT SCH (09:17)
[2022-09-19] MEDS: methylPREDNISolone SOD SUCC 40 MG/ML VIAL IV SCH (09:17)
[2022-09-19] MEDS: THERAHONEY GEL 1.5 OZ TUBE TP SCH (09:18)
[2022-09-19] MEDS: MUPIROCIN OINT 2% 22 GM TUBE NS SCH (09:19)
[2022-09-19] MEDS: ENSURE ENLIVE 237 ML LIQUID (VANILLA) PO SCH (09:20)
[2022-09-19] MEDS ORDERED: PRED20TA PO (10:34)
[2022-09-19] MEDS ORDERED: LEVO500T90 PO (10:34)
--- NOTE | 2022-09-19 12:48 | NUR ---
PATIENT BACK TO [facility], INFORMED SENIOR ETL DEVELOPER TIME TO [place].
--- NOTE | 2022-09-19 13:23 | NUR ---
INFORMED /MARIOLA REGARDING THE PATIENT HAS ABX, PREDNISONE, AND CONTINUE TO BACTROBAN BID X 4 DAYS MORE.
--- NOTE | 2022-09-19 14:51 | NUR ---
2EMTs PICKED UP THE PATIENT, AND GIVEN REPORT. THE PATIENT IN STABLE CONDITION, IN NO RESPIRATORY DISTRESS OBSERVED. WOUND PICTURE TAKEN BEFORE PATIENT LEAVE THE FACILITY.
[2022-09-19] MEDS ORDERED: ENOXAPARIN SODIUM 40 MG/0.4 ML DISP.SYRIN SQ SCH (21:00)
== END 2022-09-19 14:30 | disposition home health service (06) | DRG 853 ==
LOC: ER 15:25 → ICU 19:54 → MED 09-16 18:05 → TELE 09-16 18:07 → MED 09-18 10:40
PROVIDERS: ADMIT Nurse Practitioner Acute Care; ATTEND Internal Medicine
PROC: 05HA33Z Insertion of Infusion Device into Left Brachial Vein, Percutaneous Approach (ICD-10-PCS; 2022-09-15)
PROC: 0JB70ZZ Excision of Back Subcutaneous Tissue and Fascia, Open Approach (ICD-10-PCS; principal; 2022-09-18)
DX: A41.9 Sepsis, unspecified organism (principal); J12.9 Viral pneumonia, unspecified; L89.153 Pressure ulcer of sacral region, stage 3; J96.01 Acute respiratory failure with hypoxia; N17.0 Acute kidney failure with tubular necrosis; R65.21 Severe sepsis with septic shock; J15.6 Pneumonia due to other Gram-negative bacteria; D68.59 Other primary thrombophilia; E44.0 Moderate protein-calorie malnutrition; E87.20 Acidosis, unspecified; R17 Unspecified jaundice; N18.9 Chronic kidney disease, unspecified; Z74.01 Bed confinement status; Z68.21 Body mass index [BMI] 21.0-21.9, adult; Z20.822 Contact with and (suspected) exposure to COVID-19; E86.0 Dehydration; L98.9 Disorder of the skin and subcutaneous tissue, unspecified; E88.09 Other disorders of plasma-protein metabolism, not elsewhere classified; I70.0 Atherosclerosis of aorta; N28.1 Cyst of kidney, acquired; N40.0 Benign prostatic hyperplasia without lower urinary tract symptoms; Z87.440 Personal history of urinary (tract) infections
CPT/HCPCS: 36410; 36415; 36600; 71045-TC; 76705-TC; 76770-TC; 80048-TC; 80053-TC; 80076-TC; 81001; 82533; 82803-TC; 83605-TC; 83735-TC; 83880; 84100-TC; 84484-TC; 85025-TC; 85730-TC; 87040-TC; 87081-TC; 87086-TC; 92526; 92611-TC; 93307-TC; 94799-TC; 97112-TC; 97530-TC; A4223; C9803; G0378; J1650; J1885; J2543; J2920; J3475; J7030; J7050; J7060

== ENCOUNTER 2023-03-26 14:08 | Emergency (ER) | payer BC ==
[~2023-03-26] VITALS: Ht 185.4 cm; Wt 74.4 kg
[2023-03-26 14:08] VITALS: BP 126/61; TEMP 100; O2SAT 96
[~2023-03-26 14:08] MED LIST: ACET-73 PO; FINA5TAB3 PO; LEVO500T90 PO; MAGN400O6 PO; MELO-107 PO; MENT71OI2 TP; POLY17PO4 PO; PRED20TA PO; SENN-291 PO; SIME80TA15 PO; TAMS-12 PO
[2023-03-26 14:55] LABS: BASOPHILS % (AUTO) 0.3 % (0.0-2.0); EOSINOPHILS % (AUTO) 0.4 % (0.0-6.0); HEMATOCRIT 42 % (39-51); HEMOGLOBIN 14.1 g/dL (13.5-17.5); LYMPHOCYTES # (AUTO) 0.6 K/uL (0.8-4.8); LYMPHOCYTES % (AUTO) 5.2 % (20.0-44.0); MEAN CORPUSCULAR HEMOGLOBIN 28 PG (26.0-33.0); MEAN CORPUSCULAR HGB CONC 33 g/dl (31.0-36.0); MEAN CORPUSCULAR VOLUME 85 fL (80-96); MONOCYTES # (AUTO) 0.8 K/uL (0.1-1.30); MONOCYTES % (AUTO) 7.2 % (2.0-12.0); NEUTROPHILS # (AUTO) 9.7 K/uL (1.8-8.9); NEUTROPHILS % (AUTO) 86.9 % (43.0-81.0); PLATELET COUNT (AUTO) 192 K/uL (150-450); RED CELL DISTRIBUTION WIDTH 15.4 % (11.5-15.0); WHITE BLOOD COUNT (AUTO) 11.1 K/uL (4.3-11.0)
[2023-03-26 15:05] LABS: CALCIUM, SERUM 10.3 mg/dL (8.5-10.1); CARBON DIOXIDE 25 mmol/L (21-32); CHLORIDE 100 mmol/L (98-107); CREATININE 1.1 mg/dL (0.6-1.3); GLUCOSE 100 mg/dL (74-106); POTASSIUM 4.1 mmol/L (3.5-5.1); SODIUM SERUM 135 mmol/L (136-145); UREA NITROGEN, BLOOD 19 mg/dL (7-18)
[2023-03-26 15:54] LABS: APPEARANCE,URINE CLOUDY (CLEAR); BILIRUBIN,URINE NEGATIVE (NEGATIVE); BLOOD, URINE 2+ Ery/uL (NEGATIVE); COLOR,URINE YELLOW (YELLOW); KETONES,URINE 3+ mg/dL (NEGATIVE); LEUKOCYTE ESTERASE ,URINE 3+ (NEGATIVE); NITRITE, URINE POSITIVE (NEGATIVE); PH,URINE 5.5 (5.0-8.0); PROTEIN,URINE 2+ mg/dl (NEGATIVE); UGLUCOSE NEGATIVE (NEGATIVE); UROBILINOGEN,URINE 0.2 EU/dL (0.2)
[2023-03-26 16:07] LABS: ADD URINE CULTURE YES; BACTERIA,URINE 3+ /HPF (None Seen); RBC,URINE 21-50 /HPF (0-2); SQUAMOUS EPITHELIAL CELL,UR 0-2 /HPF (None Seen); WBC,URINE 51-80 /HPF (0-3)
[2023-03-26] MEDS ORDERED: CIPR500T5 PO (17:18)
[2023-03-26] MEDS ORDERED: CIPROFLOXACIN HCL 250 MG TABLET ONE (17:29)
[2023-03-26] MEDS ORDERED: CIPROFLOXACIN HCL 250 MG TABLET PO ONE (17:30)
== END 2023-03-26 19:10 ==
LOC: ER 14:26
DX: N39.0 Urinary tract infection, site not specified (principal)
CPT/HCPCS: 36415; 71045-TC; 80048-TC; 81001; 85025-TC; 87086-TC

== ENCOUNTER 2024-01-15 16:09 | Inpatient (IN) | payer BC, MEDICARE ==
[~2024-01-15] VITALS: Ht 185.4 cm; Wt 83.0 kg
[~2024-01-15 16:09] MED LIST changes: +CIPR500T5 PO; +SULF1TAB48 PO
[2024-01-15] MEDS: IV NS 0.9% 1,000 ML BAG IV ONE (16:57)
[2024-01-15 16:59] LABS: BASOPHILS # (AUTO) 0.2 K/uL (0.0-0.2); BASOPHILS % (AUTO) 0.7 % (0.0-2.0); EOSINOPHILS # (AUTO) 0.5 K/uL (0.0-0.7); EOSINOPHILS % (AUTO) 2.2 % (0.0-6.0); HEMATOCRIT 42 % (39-51); HEMOGLOBIN 13.8 g/dL (13.5-17.5); LYMPHOCYTES # (AUTO) 0.5 K/uL (0.8-4.8); MEAN CORPUSCULAR HEMOGLOBIN 28 PG (26.0-33.0); MEAN CORPUSCULAR HGB CONC 33 g/dl (31.0-36.0); MEAN CORPUSCULAR VOLUME 84 fL (80-96); MONOCYTES # (AUTO) 1.1 K/uL (0.1-1.30); MONOCYTES % (AUTO) 4.6 % (2.0-12.0); NEUTROPHILS # (AUTO) 20.8 K/uL (1.8-8.9); NEUTROPHILS % (AUTO) 90.5 % (43.0-81.0); PLATELET COUNT (AUTO) 239 K/uL (150-450); RED CELL DISTRIBUTION WIDTH 15.2 % (11.5-15.0)
[2024-01-15 17:07] LABS: CALCIUM, SERUM 10.5 mg/dL (8.5-10.1); CARBON DIOXIDE 24 mmol/L (21-32); CHLORIDE 100 mmol/L (98-107); CREATININE 2.1 mg/dL (0.6-1.3); GLUCOSE 148 mg/dL (74-106); POTASSIUM 4.7 mmol/L (3.5-5.1); SODIUM SERUM 134 mmol/L (136-145); UREA NITROGEN, BLOOD 38 mg/dL (7-18)
[2024-01-15 17:12] LABS: ALANINE AMINOTRANSFERASE 19 U/L (12-78); ALBUMIN 2.8 g/dL (3.4-5.0); ALKALINE PHOSPHATASE 95 U/L (46-116); ASPARTATE AMINOTRANSFERASE 15 U/L (15-37); BILIRUBIN,DIRECT 0.3 mg/dL (0.0-0.2); BILIRUBIN,TOTAL 1.2 mg/dL (0.2-1.0); TOTAL PROTEIN, SERUM 7.2 g/dL (6.4-8.2)
[2024-01-15 17:13] LABS: INR 1.07 (0.91-1.10); PARTIAL THROMBOPLASTIN TIME 40.9 SEC (24.3-34.3); PROTHROMBIN TIME 11.3 SECS (9.2-11.1)
[2024-01-15] MEDS: PIPERACILLIN /TAZOBACTAM 3.375 G in IV D5W 50 ML IV ONE (17:15)
[2024-01-15] MEDS: VANCOMYCIN 1 GM in IV D5W 250 ML IV ONE (17:15)
[2024-01-15 17:16] LABS: LACTIC ACID 1.6 mmol/L (0.4-2.0)
[2024-01-15 17:41] LABS: EOSINOPHILS % (MANUAL) 1 % (0-4); LYMPHOCYTES % (MANUAL) 1 % (16-48); MONOCYTES % (MANUAL) 7 % (0-11.0); NEUTROPHILS % (MANUAL) 91 (42-76); PLATELET ESTIMATE ADEQUATE
[2024-01-15 17:42] LABS: ANISOCYTOSIS 1+
[2024-01-15 17:51] LABS: APPEARANCE,URINE TURBID (CLEAR); BILIRUBIN,URINE 1+ (NEGATIVE); BLOOD, URINE 2+ Ery/uL (NEGATIVE); COLOR,URINE YELLOW (YELLOW); KETONES,URINE NEGATIVE (NEGATIVE); LEUKOCYTE ESTERASE ,URINE 2+ (NEGATIVE); NITRITE, URINE NEGATIVE (NEGATIVE); PROTEIN,URINE 2+ mg/dl (NEGATIVE); UGLUCOSE NEGATIVE (NEGATIVE)
[2024-01-15] MEDS: ASPIRIN 325 MG TABLET PO ONE (18:05)
[2024-01-15] MEDS ORDERED: ACETAMINOPHEN 650 MG/SUPP.RECT RC ONE (18:08)
[2024-01-15] MEDS: ACETAMINOPHEN 650 MG/SUPP.RECT RC ONE (18:10)
[2024-01-15 18:12] LABS: ADD URINE CULTURE YES; BACTERIA,URINE 1+ /HPF (None Seen); WBC,URINE 81-100 /HPF (0-3)
[2024-01-15 18:13] LABS: MUCUS,URINE Few /LPF (None Seen); SQUAMOUS EPITHELIAL CELL,UR 0-2 /HPF (None Seen)
[2024-01-15] MEDS: AZITHROMYCIN 500 MG in IV D5W 250 ML IV ONE (19:15)
[2024-01-15] MEDS ORDERED: ONDANSETRON HCL/PF 4 MG/2 ML VIAL IVP PRN (19:30)
[2024-01-15] MEDS: IV NS 0.9% 1,000 ML IV PRN (20:20)
[2024-01-15] MEDS: HEPARIN SODIUM, PORCINE 5000 UNITS/1 ML VIAL SQ SCH (21:00)
[2024-01-15] MEDS ORDERED: HEPARIN SODIUM, PORCINE 5000 UNITS/1 ML VIAL ONE (21:00)
[2024-01-15 22:30] VITALS: BP 96/47; TEMP 99.2; O2SAT 98
[2024-01-15] MEDS: PIPERACILLIN /TAZOBACTAM 3.375 G in IV D5W 50 ML IV SCH (23:12)
[2024-01-15] MEDS: PIPERACI/TAZO 3.375GM/D5W 50ML PB IV ONE (23:13)
[2024-01-15 23:31] VITALS: O2SAT 98
[2024-01-16] VITALS (7 sets, daily range): BP systolic 92–106; BP diastolic 48–61; TEMP 97.5–99; O2SAT 93–99
[2024-01-16] MEDS ORDERED: PIPERACI/TAZO 3.375GM/D5W 50ML PB IV ONE (05:32)
[2024-01-16 08:42] LABS: BASOPHILS % (AUTO) 0.2 % (0.0-2.0); EOSINOPHILS # (AUTO) 0.6 K/uL (0.0-0.7); EOSINOPHILS % (AUTO) 3.8 % (0.0-6.0); HEMATOCRIT 34 % (39-51); HEMOGLOBIN 11.6 g/dL (13.5-17.5); LYMPHOCYTES # (AUTO) 0.5 K/uL (0.8-4.8); LYMPHOCYTES % (AUTO) 3.2 % (20.0-44.0); MEAN CORPUSCULAR HEMOGLOBIN 28 PG (26.0-33.0); MEAN CORPUSCULAR HGB CONC 34 g/dl (31.0-36.0); MEAN CORPUSCULAR VOLUME 84 fL (80-96); MONOCYTES # (AUTO) 0.9 K/uL (0.1-1.30); MONOCYTES % (AUTO) 5.2 % (2.0-12.0); NEUTROPHILS # (AUTO) 14.7 K/uL (1.8-8.9); NEUTROPHILS % (AUTO) 87.6 % (43.0-81.0); PLATELET COUNT (AUTO) 191 K/uL (150-450); RED BLOOD CELL COUNT(AUTO) 4.11 MIL/uL (4.5-6.0); RED CELL DISTRIBUTION WIDTH 15.2 % (11.5-15.0); WHITE BLOOD COUNT (AUTO) 16.8 K/uL (4.3-11.0)
[2024-01-16 08:57] LABS: ALANINE AMINOTRANSFERASE 21 U/L (12-78); ALKALINE PHOSPHATASE 75 U/L (46-116); ASPARTATE AMINOTRANSFERASE 27 U/L (15-37); BILIRUBIN,DIRECT 0.3 mg/dL (0.0-0.2); BILIRUBIN,TOTAL 0.9 mg/dL (0.2-1.0); CALCIUM, SERUM 9.1 mg/dL (8.5-10.1); CARBON DIOXIDE 20 mmol/L (21-32); CHLORIDE 105 mmol/L (98-107); CREATININE 1.8 mg/dL (0.6-1.3); GLUCOSE 109 mg/dL (74-106); MAGNESIUM 2.1 mg/dL (1.8-2.4); PHOSPHORUS 2.1 mg/dL (2.5-4.9); POTASSIUM 4.2 mmol/L (3.5-5.1); SODIUM SERUM 136 mmol/L (136-145); TOTAL PROTEIN, SERUM 5.6 g/dL (6.4-8.2); UREA NITROGEN, BLOOD 37 mg/dL (7-18)
[2024-01-16] MEDS: TAMSULOSIN 0.4 MG CAP.SR.24H PO SCH (09:25)
[2024-01-16] MEDS: FINASTERIDE (5 MG) 5 MG TABLET PO SCH (09:25)
[2024-01-16] MEDS ORDERED: NEOM1OIN15 TP (11:17)
[2024-01-16] MEDS ORDERED: LIDO1ADH82 TP (11:17)
[2024-01-16] MEDS ORDERED: MELA3TAB41 PO (11:17)
[2024-01-16] MEDS ORDERED: CHOL200010 PO (11:17)
[2024-01-16] MEDS ORDERED: DIPH-1062 PO (11:17)
[2024-01-16] MEDS ORDERED: MULT-213 PO (11:17)
[2024-01-16] MEDS ORDERED: PROP1DRO EACHEYE (11:17)
[2024-01-16] MEDS ORDERED: [UNRECOGNIZED DRUG - REMARK] TP (11:17)
[2024-01-16] MEDS ORDERED: SENN-261 PO (11:17)
[2024-01-16] MEDS ORDERED: HYDR28.32 TP (11:17)
[2024-01-16] MEDS: PIPERACILLIN /TAZOBACTAM 2.25 G in IV D5W 50 ML IV SCH (11:25)
[2024-01-16] MEDS: K PHOS NEUTRAL 250 MG TABLET PO ONE (16:06)
[2024-01-16] MEDS: diphenhydrAMINE HCL 25 MG CAPSULE PO PRN (17:30)
[2024-01-16] MEDS: VANCOMYCIN 750 MG in IV D5W 250 ML IV SCH (17:31)
[2024-01-16] MEDS: ACETAMINOPHEN 325 MG TABLET PO PRN (21:57)
[2024-01-17] VITALS: BP 95/53; TEMP 97.5; O2SAT 95
[2024-01-17] MEDS ORDERED: hydrOXYzine 10 MG TABLET ONE (00:50)
[2024-01-17] MEDS: hydrOXYzine 10 MG TABLET PO ONE (00:51)
[2024-01-17 04:00] VITALS: BP_SYST 106; BP_SYST 90; BP_DIAS 50; TEMP 97.3; O2SAT 96
[2024-01-17 08:00] VITALS: BP 99/54; TEMP 98.5; O2SAT 92
[2024-01-17 09:05] LABS: CALCIUM, SERUM 9.6 mg/dL (8.5-10.1); CARBON DIOXIDE 19 mmol/L (21-32); CHLORIDE 104 mmol/L (98-107); CREATININE 1.7 mg/dL (0.6-1.3); GLUCOSE 80 mg/dL (74-106); PHOSPHORUS 2.5 mg/dL (2.5-4.9); POTASSIUM 4.2 mmol/L (3.5-5.1); SODIUM SERUM 135 mmol/L (136-145); UREA NITROGEN, BLOOD 37 mg/dL (7-18)
[2024-01-17] MEDS: ENSURE ENLIVE 237 ML LIQUID (VANILLA) PO SCH (09:09)
[2024-01-17 10:56] LABS: BASOPHILS % (AUTO) 0.2 % (0.0-2.0); EOSINOPHILS # (AUTO) 0.9 K/uL (0.0-0.7); EOSINOPHILS % (AUTO) 7.7 % (0.0-6.0); HEMATOCRIT 39 % (39-51); HEMOGLOBIN 12.5 g/dL (13.5-17.5); LYMPHOCYTES # (AUTO) 0.6 K/uL (0.8-4.8); LYMPHOCYTES % (AUTO) 5.2 % (20.0-44.0); MEAN CORPUSCULAR HEMOGLOBIN 27 PG (26.0-33.0); MEAN CORPUSCULAR HGB CONC 32 g/dl (31.0-36.0); MEAN CORPUSCULAR VOLUME 85 fL (80-96); MONOCYTES # (AUTO) 0.7 K/uL (0.1-1.30); MONOCYTES % (AUTO) 6.2 % (2.0-12.0); NEUTROPHILS % (AUTO) 80.7 % (43.0-81.0); PLATELET COUNT (AUTO) 205 K/uL (150-450); RED BLOOD CELL COUNT(AUTO) 4.61 MIL/uL (4.5-6.0); RED CELL DISTRIBUTION WIDTH 15.4 % (11.5-15.0); WHITE BLOOD COUNT (AUTO) 11.1 K/uL (4.3-11.0)
[2024-01-17] MEDS: Z GUARD REMEDY 4 OZ OINT TP SCH (11:11)
[2024-01-17 16:00] VITALS: BP 99/52; TEMP 98.1; O2SAT 95
[2024-01-17 20:00] VITALS: BP 98/51; TEMP 98.6; O2SAT 98
[2024-01-18 04:00] VITALS: BP 98/56; TEMP 98.3; O2SAT 96
[2024-01-18 07:40] LABS: BASOPHILS % (AUTO) 0.1 % (0.0-2.0); EOSINOPHILS # (AUTO) 1.1 K/uL (0.0-0.7); EOSINOPHILS % (AUTO) 8.9 % (0.0-6.0); HEMATOCRIT 36 % (39-51); LYMPHOCYTES # (AUTO) 0.6 K/uL (0.8-4.8); LYMPHOCYTES % (AUTO) 5.3 % (20.0-44.0); MEAN CORPUSCULAR HEMOGLOBIN 28 PG (26.0-33.0); MEAN CORPUSCULAR HGB CONC 33 g/dl (31.0-36.0); MEAN CORPUSCULAR VOLUME 85 fL (80-96); MONOCYTES # (AUTO) 0.8 K/uL (0.1-1.30); NEUTROPHILS # (AUTO) 9.4 K/uL (1.8-8.9); NEUTROPHILS % (AUTO) 78.7 % (43.0-81.0); PLATELET COUNT (AUTO) 221 K/uL (150-450); RED BLOOD CELL COUNT(AUTO) 4.27 MIL/uL (4.5-6.0); RED CELL DISTRIBUTION WIDTH 15.1 % (11.5-15.0); WHITE BLOOD COUNT (AUTO) 11.9 K/uL (4.3-11.0)
[2024-01-18 08:00] VITALS: BP 99/53; TEMP 99; O2SAT 95
[2024-01-18 08:02] LABS: CALCIUM, SERUM 9.7 mg/dL (8.5-10.1); CARBON DIOXIDE 19 mmol/L (21-32); CHLORIDE 105 mmol/L (98-107); CREATININE 1.5 mg/dL (0.6-1.3); GLUCOSE 98 mg/dL (74-106); MAGNESIUM 2.1 mg/dL (1.8-2.4); PHOSPHORUS 2.3 mg/dL (2.5-4.9); POTASSIUM 3.9 mmol/L (3.5-5.1); SODIUM SERUM 137 mmol/L (136-145); UREA NITROGEN, BLOOD 34 mg/dL (7-18)
[2024-01-18] MEDS: ZOSYN IVPB 3.375 G in IV D5W 50ml IV SCH (12:13)
[2024-01-18] MEDS: K PHOS NEUTRAL 250 MG TABLET PO ONE (15:44)
[2024-01-18 16:00] VITALS: BP 131/63; TEMP 98.1; O2SAT 93
[2024-01-18] MEDS: ENSURE ENLIVE CHOC 237 ML CAN PO SCH (16:13)
[2024-01-18 18:00] VITALS: BP 131/63; TEMP 98.1; O2SAT 93
[2024-01-18] MEDS: VANCOMYCIN HCL 1.25 GM in IV D5W 250 ML IV SCH (18:07)
[2024-01-18 20:00] VITALS: BP 123/88; TEMP 99.9; O2SAT 100
[2024-01-19 04:00] VITALS: BP 116/64; TEMP 97.4; O2SAT 100
[2024-01-19 07:54] LABS: BASOPHILS # (AUTO) 0.1 K/uL (0.0-0.2); BASOPHILS % (AUTO) 0.5 % (0.0-2.0); EOSINOPHILS # (AUTO) 1.4 K/uL (0.0-0.7); EOSINOPHILS % (AUTO) 12.2 % (0.0-6.0); HEMATOCRIT 35 % (39-51); HEMOGLOBIN 11.4 g/dL (13.5-17.5); LYMPHOCYTES # (AUTO) 0.9 K/uL (0.8-4.8); LYMPHOCYTES % (AUTO) 7.9 % (20.0-44.0); MEAN CORPUSCULAR HEMOGLOBIN 27 PG (26.0-33.0); MEAN CORPUSCULAR HGB CONC 32 g/dl (31.0-36.0); MEAN CORPUSCULAR VOLUME 85 fL (80-96); MONOCYTES % (AUTO) 8.6 % (2.0-12.0); NEUTROPHILS # (AUTO) 8.2 K/uL (1.8-8.9); NEUTROPHILS % (AUTO) 70.8 % (43.0-81.0); PLATELET COUNT (AUTO) 226 K/uL (150-450); RED BLOOD CELL COUNT(AUTO) 4.17 MIL/uL (4.5-6.0); RED CELL DISTRIBUTION WIDTH 15.2 % (11.5-15.0); WHITE BLOOD COUNT (AUTO) 11.6 K/uL (4.3-11.0)
[2024-01-19 08:00] VITALS: BP 114/59; TEMP 97.7; O2SAT 98
[2024-01-19 08:27] LABS: CALCIUM, SERUM 8.9 mg/dL (8.5-10.1); CARBON DIOXIDE 18 mmol/L (21-32); CHLORIDE 108 mmol/L (98-107); CREATININE 1.3 mg/dL (0.6-1.3); GLUCOSE 101 mg/dL (74-106); PHOSPHORUS 2.6 mg/dL (2.5-4.9); POTASSIUM 3.6 mmol/L (3.5-5.1); SODIUM SERUM 139 mmol/L (136-145); UREA NITROGEN, BLOOD 26 mg/dL (7-18)
[2024-01-19 16:00] VITALS: BP 101/52; TEMP 99; O2SAT 98
[2024-01-19] MEDS: Z GUARD REMEDY 4 OZ OINT TP PRN (16:10)
[2024-01-19 20:00] VITALS: BP 107/52; TEMP 98.8; O2SAT 98
[2024-01-19] MEDS: TEMAZEPAM 7.5 MG CAPSULE PO PRN (21:15)
[2024-01-20 04:00] VITALS: BP 100/55; TEMP 97.5; O2SAT 98
[2024-01-20 07:50] LABS: BASOPHILS # (AUTO) 0.1 K/uL (0.0-0.2); BASOPHILS % (AUTO) 0.8 % (0.0-2.0); EOSINOPHILS # (AUTO) 1.3 K/uL (0.0-0.7); EOSINOPHILS % (AUTO) 11.7 % (0.0-6.0); HEMATOCRIT 35 % (39-51); HEMOGLOBIN 11.3 g/dL (13.5-17.5); LYMPHOCYTES # (AUTO) 0.9 K/uL (0.8-4.8); LYMPHOCYTES % (AUTO) 7.7 % (20.0-44.0); MEAN CORPUSCULAR HEMOGLOBIN 27 PG (26.0-33.0); MEAN CORPUSCULAR HGB CONC 32 g/dl (31.0-36.0); MEAN CORPUSCULAR VOLUME 85 fL (80-96); MONOCYTES # (AUTO) 0.9 K/uL (0.1-1.30); MONOCYTES % (AUTO) 7.6 % (2.0-12.0); NEUTROPHILS # (AUTO) 8.2 K/uL (1.8-8.9); NEUTROPHILS % (AUTO) 72.2 % (43.0-81.0); PLATELET COUNT (AUTO) 255 K/uL (150-450); RED BLOOD CELL COUNT(AUTO) 4.18 MIL/uL (4.5-6.0); RED CELL DISTRIBUTION WIDTH 15.4 % (11.5-15.0); WHITE BLOOD COUNT (AUTO) 11.4 K/uL (4.3-11.0)
[2024-01-20 08:00] VITALS: BP 106/51; TEMP 97.9; O2SAT 98
[2024-01-20 08:19] LABS: CALCIUM, SERUM 9.1 mg/dL (8.5-10.1); CARBON DIOXIDE 20 mmol/L (21-32); CHLORIDE 108 mmol/L (98-107); CREATININE 1.2 mg/dL (0.6-1.3); GLUCOSE 94 mg/dL (74-106); MAGNESIUM 1.9 mg/dL (1.8-2.4); PHOSPHORUS 2.7 mg/dL (2.5-4.9); POTASSIUM 3.8 mmol/L (3.5-5.1); SODIUM SERUM 141 mmol/L (136-145); UREA NITROGEN, BLOOD 19 mg/dL (7-18)
[2024-01-20 16:00] VITALS: BP 111/62; TEMP 97.9; O2SAT 98
== END 2024-01-20 17:40 | DRG 871 ==
LOC: ER 16:09 → TELE-TD 21:54 → TELE1 01-16 09:16 → MEDSG1 01-17 10:28
PROVIDERS: ADMIT Nurse Practitioner Acute Care; ATTEND Nurse Practitioner Acute Care
DX: A41.50 Gram-negative sepsis, unspecified (principal); I21.A1 Myocardial infarction type 2; N17.0 Acute kidney failure with tubular necrosis; N39.0 Urinary tract infection, site not specified; E44.0 Moderate protein-calorie malnutrition; E87.1 Hypo-osmolality and hyponatremia; E87.20 Acidosis, unspecified; R65.20 Severe sepsis without septic shock; E88.09 Other disorders of plasma-protein metabolism, not elsewhere classified; R74.01 Elevation of levels of liver transaminase levels; L90.5 Scar conditions and fibrosis of skin; R21 Rash and other nonspecific skin eruption; N40.0 Benign prostatic hyperplasia without lower urinary tract symptoms; D64.9 Anemia, unspecified; Z22.322 Carrier or suspected carrier of Methicillin resistant Staphylococcus aureus; B86 Scabies; N18.9 Chronic kidney disease, unspecified
CPT/HCPCS: 36415; 71045-TC; 80048-TC; 80076-TC; 80202-TC; 81001; 83605-TC; 83735-TC; 84100-TC; 84484-TC; 85025-TC; 85730-TC; 87040-TC; 87081-TC; 93307-TC; 94799-TC; A4223; G0378; J0456; J1644; J2543; J3370; J3371; J7030; J7060; Q0163; Q0177

== ENCOUNTER 2024-04-19 20:22 | Inpatient (IN) | payer MEDICARE, OTHER ==
[~2024-04-19] VITALS: Ht 180.3 cm; Wt 81.6 kg
[~2024-04-19 20:22] MED LIST changes: +CHOL200010 PO; -CIPR500T5 PO; +DIPH-1062 PO; -FINA5TAB3 PO; +HYDR28.32 TP; -LEVO500T90 PO; +LIDO1ADH82 TP; +MELA3TAB41 PO; -MELO-107 PO; +MULT-213 PO; +NEOM1OIN15 TP; -PRED20TA PO; +PROP1DRO EACHEYE; +SENN-261 PO; -SENN-291 PO; -SULF1TAB48 PO; -TAMS-12 PO; +[UNRECOGNIZED DRUG - REMARK] TP
[2024-04-19 21:18] LABS: BASOPHILS % (AUTO) 0.2 % (0.0-2.0); EOSINOPHILS % (AUTO) 0.2 % (0.0-6.0); HEMATOCRIT 45 % (39-51); HEMOGLOBIN 14.6 g/dL (13.5-17.5); LYMPHOCYTES # (AUTO) 0.7 K/uL (0.8-4.8); LYMPHOCYTES % (AUTO) 4.8 % (20.0-44.0); MEAN CORPUSCULAR HEMOGLOBIN 28 PG (26.0-33.0); MEAN CORPUSCULAR HGB CONC 33 g/dl (31.0-36.0); MEAN CORPUSCULAR VOLUME 86 fL (80-96); MONOCYTES # (AUTO) 0.5 K/uL (0.1-1.30); MONOCYTES % (AUTO) 3.8 % (2.0-12.0); NEUTROPHILS # (AUTO) 12.9 K/uL (1.8-8.9); PLATELET COUNT (AUTO) 245 K/uL (150-450); RED BLOOD CELL COUNT(AUTO) 5.19 MIL/uL (4.5-6.0); RED CELL DISTRIBUTION WIDTH 15.9 % (11.5-15.0); WHITE BLOOD COUNT (AUTO) 14.2 K/uL (4.3-11.0)
[2024-04-19 21:27] LABS: CALCIUM, SERUM 9.7 mg/dL (8.5-10.1); CARBON DIOXIDE 23 mmol/L (21-32); CHLORIDE 105 mmol/L (98-107); CREATININE 1.7 mg/dL (0.6-1.3); GLUCOSE 125 mg/dL (74-106); POTASSIUM 4.5 mmol/L (3.5-5.1); SODIUM SERUM 138 mmol/L (136-145); UREA NITROGEN, BLOOD 26 mg/dL (7-18)
[2024-04-19 21:31] LABS: INR 1.12 (0.91-1.10); PARTIAL THROMBOPLASTIN TIME 27.9 SEC (24.3-34.3); PROTHROMBIN TIME 11.4 SECS (9.2-11.1)
[2024-04-19 21:32] LABS: ALANINE AMINOTRANSFERASE 23 U/L (12-78); ALBUMIN 3.4 g/dL (3.4-5.0); ALKALINE PHOSPHATASE 95 U/L (46-116); ASPARTATE AMINOTRANSFERASE 20 U/L (15-37); BILIRUBIN,DIRECT 0.3 mg/dL (0.0-0.2); BILIRUBIN,TOTAL 1.6 mg/dL (0.2-1.0); TOTAL PROTEIN, SERUM 6.8 g/dL (6.4-8.2)
[2024-04-19 21:37] LABS: LACTIC ACID 2.1 mmol/L (0.4-2.0)
[2024-04-19] MEDS ORDERED: ONDANSETRON HCL/PF 4 MG/2 ML VIAL ONE (21:53)
[2024-04-19] MEDS: ONDANSETRON HCL/PF - ER 4 MG/2 ML VIAL IV ONE (21:55)
[2024-04-19] MEDS ORDERED: ONDANSETRON HCL/PF 4 MG/2 ML VIAL IVP PRN (22:00)
[2024-04-19 22:20] VITALS: O2SAT 90
[2024-04-19] MEDS ORDERED: CEFEPIME 1 GM VIAL ONE (22:29)
[2024-04-19] MEDS ORDERED: VANCOMYCIN 1 GM /D5W 250 ML PB IV ONE (22:29)
[2024-04-19] MEDS: CEFEPIME 1 GM in IV D5W 50 ML IV ONE (22:30)
[2024-04-19 22:35] VITALS: O2SAT 87
[2024-04-19] MEDS: VANCOMYCIN 1 GM in IV D5W 250 ML IV ONE (23:00)
[2024-04-19 23:33] VITALS: O2SAT 92
[2024-04-20] VITALS (31 sets, daily range): BP systolic 85–117; BP diastolic 41–61; TEMP 97.5–101.1; O2SAT 91–100
[2024-04-20] MEDS: IV NS 0.9% 1,000 ML IV PRN ×2 (02:32→10:56)
[2024-04-20] MEDS: ACETAMINOPHEN 650 MG/SUPP.RECT RC PRN (02:58)
[2024-04-20] MEDS: IV NS 0.9% 1,000 ML IV ONE (03:13)
[2024-04-20 06:03] LABS: ABG BASE EXCESS -6.7 mmol/L (-2.0-3.0); ABG OXYGEN SATURATION 93.1 % (94.0-98.0); ABG PH 7.359 (7.350-7.450); ABG PO2 67.2 mmHg (83.0-108.0); ABG TOTAL HEMOGLOBIN 14.2 G/dL (13.5-17.5); MetHb 0.3 % (0.0-1.5); O2Hb 92.8 % (94.0-97.0); SITE, ABG RIGHT RADIAL
[2024-04-20] MEDS: Sodium Bicarbonate 100 MEQ in IV NS 0.9% 1,000 ML IV SCH (07:14)
[2024-04-20] MEDS ORDERED: GUAI100S9 PO (08:07)
[2024-04-20] MEDS ORDERED: ASCO-352 PO (08:07)
[2024-04-20] MEDS ORDERED: DIPH25TA23 PO (08:07)
[2024-04-20 08:12] LABS: BASOPHILS % (AUTO) 0.2 % (0.0-2.0); EOSINOPHILS % (AUTO) 0.1 % (0.0-6.0); HEMATOCRIT 40 % (39-51); HEMOGLOBIN 12.7 g/dL (13.5-17.5); LYMPHOCYTES # (AUTO) 0.8 K/uL (0.8-4.8); LYMPHOCYTES % (AUTO) 5.7 % (20.0-44.0); MEAN CORPUSCULAR HEMOGLOBIN 28 PG (26.0-33.0); MEAN CORPUSCULAR HGB CONC 32 g/dl (31.0-36.0); MEAN CORPUSCULAR VOLUME 86 fL (80-96); MONOCYTES % (AUTO) 7.2 % (2.0-12.0); NEUTROPHILS # (AUTO) 12.4 K/uL (1.8-8.9); NEUTROPHILS % (AUTO) 86.8 % (43.0-81.0); PLATELET COUNT (AUTO) 195 K/uL (150-450); RED BLOOD CELL COUNT(AUTO) 4.61 MIL/uL (4.5-6.0); RED CELL DISTRIBUTION WIDTH 16.8 % (11.5-15.0); WHITE BLOOD COUNT (AUTO) 14.2 K/uL (4.3-11.0)
[2024-04-20 08:18] LABS: ALBUMIN 2.7 g/dL (3.4-5.0); CALCIUM, SERUM 9.2 mg/dL (8.5-10.1); CARBON DIOXIDE 22 mmol/L (21-32); CHLORIDE 107 mmol/L (98-107); CREATININE 2.4 mg/dL (0.6-1.3); GLUCOSE 102 mg/dL (74-106); NT-PRO BNP 567 pg/mL (0-125); PHOSPHORUS 1.9 mg/dL (2.5-4.9); POTASSIUM 4.4 mmol/L (3.5-5.1); SODIUM SERUM 138 mmol/L (136-145); UREA NITROGEN, BLOOD 33 mg/dL (7-18)
[2024-04-20] MEDS: CEFEPIME 2 GM in IV D5W 100 ML IV SCH (08:51)
[2024-04-20] MEDS: PANTOPRAZOLE 40 MG VIAL IV SCH (08:51)
[2024-04-20] MEDS: ENOXAPARIN SODIUM 40 MG/0.4 ML DISP.SYRIN SQ SCH (08:52)
[2024-04-20 10:26] LABS: ABG BASE EXCESS -4.9 mmol/L (-2.0-3.0); ABG OXYGEN SATURATION 97.4 % (94.0-98.0); ABG PCO2 30.4 mmHg (35.0-48.0); ABG PH 7.404 (7.350-7.450); ABG TOTAL HEMOGLOBIN 13.6 G/dL (13.5-17.5); COHb 0.3 % (0.5-1.5); MetHb 0.3 % (0.0-1.5); O2Hb 96.8 % (94.0-97.0); SITE, ABG RIGHT RADIAL
[2024-04-20] MEDS: Z GUARD REMEDY 4 OZ OINT TP PRN (11:12)
[2024-04-20 15:41] LABS: CREATININE, URINE 146.3 MG/DL (30.0-125.0); URINE TOTAL PROTEIN 127.3 mg/dL (0-11.9)
[2024-04-20 16:31] LABS: APPEARANCE,URINE CLOUDY (CLEAR); BILIRUBIN,URINE 1+ (NEGATIVE); BLOOD, URINE 3+ Ery/uL (NEGATIVE); COLOR,URINE DARK YELLOW (YELLOW); KETONES,URINE TRACE mg/dL (NEGATIVE); LEUKOCYTE ESTERASE ,URINE TRACE (NEGATIVE); NITRITE, URINE POSITIVE (NEGATIVE); PH,URINE 5.5 (5.0-8.0); PROTEIN,URINE 2+ mg/dl (NEGATIVE); UGLUCOSE NEGATIVE (NEGATIVE); UROBILINOGEN,URINE 0.2 EU/dL (0.2)
[2024-04-20] MEDS: Sodium Phosphate 15 MMOL in IV NS 0.9% 245 ML IV SCH (16:56)
[2024-04-20 18:00] LABS: RBC,URINE 81-100 /HPF (0-2)
[2024-04-20 18:01] LABS: ADD URINE CULTURE YES; BACTERIA,URINE 3+ /HPF (None Seen)
[2024-04-20 18:02] LABS: URINE AMORPHOUS URATE Few /HPF (None Seen)
[2024-04-20 18:41] LABS: EOSINOPHIL,URINE None Seen
[2024-04-20] MEDS: VANCOMYCIN 1 GM in IV D5W 250 ML IV SCH (21:41)
[2024-04-21] VITALS (44 sets, daily range): BP systolic 81–123; BP diastolic 33–66; TEMP 97.8–98.5; O2SAT 91–100
[2024-04-21 05:53] LABS: BASOPHILS % (AUTO) 0.3 % (0.0-2.0); EOSINOPHILS # (AUTO) 0.2 K/uL (0.0-0.7); HEMATOCRIT 35 % (39-51); HEMOGLOBIN 11.5 g/dL (13.5-17.5); LYMPHOCYTES # (AUTO) 0.9 K/uL (0.8-4.8); LYMPHOCYTES % (AUTO) 8.3 % (20.0-44.0); MEAN CORPUSCULAR HEMOGLOBIN 28 PG (26.0-33.0); MEAN CORPUSCULAR HGB CONC 33 g/dl (31.0-36.0); MEAN CORPUSCULAR VOLUME 85 fL (80-96); MONOCYTES # (AUTO) 0.9 K/uL (0.1-1.30); MONOCYTES % (AUTO) 8.9 % (2.0-12.0); NEUTROPHILS # (AUTO) 8.5 K/uL (1.8-8.9); NEUTROPHILS % (AUTO) 80.5 % (43.0-81.0); PLATELET COUNT (AUTO) 185 K/uL (150-450); RED BLOOD CELL COUNT(AUTO) 4.09 MIL/uL (4.5-6.0); RED CELL DISTRIBUTION WIDTH 16.3 % (11.5-15.0); WHITE BLOOD COUNT (AUTO) 10.5 K/uL (4.3-11.0)
[2024-04-21 05:56] LABS: ALANINE AMINOTRANSFERASE 19 U/L (12-78); ALBUMIN 2.5 g/dL (3.4-5.0); ALKALINE PHOSPHATASE 77 U/L (46-116); ASPARTATE AMINOTRANSFERASE 37 U/L (15-37); BILIRUBIN,TOTAL 1.4 mg/dL (0.2-1.0); CALCIUM, SERUM 9.2 mg/dL (8.5-10.1); CARBON DIOXIDE 22 mmol/L (21-32); CHLORIDE 111 mmol/L (98-107); CREATININE 1.8 mg/dL (0.6-1.3); GLUCOSE 88 mg/dL (74-106); PHOSPHORUS 2.8 mg/dL (2.5-4.9); POTASSIUM 4.2 mmol/L (3.5-5.1); SODIUM SERUM 143 mmol/L (136-145); TOTAL PROTEIN, SERUM 5.8 g/dL (6.4-8.2); UREA NITROGEN, BLOOD 32 mg/dL (7-18)
[2024-04-21 07:01] LABS: CREATINE KINASE, TOTAL 477 U/L (39-308)
[2024-04-21] MEDS: ALBUTEROL FS 2.5 MG/3 ML VIAL.NEB NEB SCH (11:18)
[2024-04-21] MEDS: IPRATROPIUM NEB FS 0.5 MG/2.5 ML AMPUL.NEB NEB SCH (11:18)
[2024-04-22] VITALS (42 sets, daily range): BP systolic 95–124; BP diastolic 39–68; TEMP 98–98.6; O2SAT 89–100
[2024-04-22 04:50] LABS: CALCIUM, SERUM 9.7 mg/dL (8.5-10.1); CARBON DIOXIDE 20 mmol/L (21-32); CHLORIDE 111 mmol/L (98-107); CREATININE 1.3 mg/dL (0.6-1.3); GLUCOSE 82 mg/dL (74-106); POTASSIUM 3.9 mmol/L (3.5-5.1); SODIUM SERUM 135 mmol/L (136-145); UREA NITROGEN, BLOOD 27 mg/dL (7-18)
[2024-04-22 08:06] LABS: PTH, INTACT 31 pg/mL (15-65)
[2024-04-22] MEDS: ACETYLCYSTEINE 10% SOLN 400 MG/4 ML VIAL NEB SCH (12:00)
[2024-04-23] VITALS (40 sets, daily range): BP systolic 96–127; BP diastolic 36–64; TEMP 97.7–97.9; O2SAT 95–100
[2024-04-23 04:46] LABS: BASOPHILS % (AUTO) 0.3 % (0.0-2.0); EOSINOPHILS # (AUTO) 0.3 K/uL (0.0-0.7); EOSINOPHILS % (AUTO) 3.3 % (0.0-6.0); HEMATOCRIT 34 % (39-51); HEMOGLOBIN 10.8 g/dL (13.5-17.5); LYMPHOCYTES # (AUTO) 0.6 K/uL (0.8-4.8); LYMPHOCYTES % (AUTO) 6.4 % (20.0-44.0); MEAN CORPUSCULAR HEMOGLOBIN 28 PG (26.0-33.0); MEAN CORPUSCULAR HGB CONC 32 g/dl (31.0-36.0); MEAN CORPUSCULAR VOLUME 88 fL (80-96); MONOCYTES # (AUTO) 0.8 K/uL (0.1-1.30); MONOCYTES % (AUTO) 7.9 % (2.0-12.0); NEUTROPHILS # (AUTO) 8.3 K/uL (1.8-8.9); NEUTROPHILS % (AUTO) 82.1 % (43.0-81.0); PLATELET COUNT (AUTO) 177 K/uL (150-450); RED BLOOD CELL COUNT(AUTO) 3.88 MIL/uL (4.5-6.0); RED CELL DISTRIBUTION WIDTH 16.4 % (11.5-15.0); WHITE BLOOD COUNT (AUTO) 10.2 K/uL (4.3-11.0)
[2024-04-23 05:13] LABS: CALCIUM, SERUM 9.6 mg/dL (8.5-10.1); CARBON DIOXIDE 18 mmol/L (21-32); CHLORIDE 113 mmol/L (98-107); CREATININE 1.1 mg/dL (0.6-1.3); GLUCOSE 81 mg/dL (74-106); MAGNESIUM 2.2 mg/dL (1.8-2.4); POTASSIUM 3.9 mmol/L (3.5-5.1); SODIUM SERUM 142 mmol/L (136-145); UREA NITROGEN, BLOOD 19 mg/dL (7-18)
[2024-04-23] MEDS: Sodium Phosphate 15 MMOL in IV NS 0.9% 245 ML IV ONE (15:34)
[2024-04-24] VITALS (37 sets, daily range): BP systolic 96–132; BP diastolic 42–92; TEMP 97.4–97.8; O2SAT 89–100
[2024-04-24 05:06] LABS: CALCIUM, SERUM 9.7 mg/dL (8.5-10.1); CARBON DIOXIDE 23 mmol/L (21-32); CHLORIDE 111 mmol/L (98-107); CREATININE 1.2 mg/dL (0.6-1.3); GLUCOSE 80 mg/dL (74-106); POTASSIUM 3.4 mmol/L (3.5-5.1); SODIUM SERUM 144 mmol/L (136-145); UREA NITROGEN, BLOOD 17 mg/dL (7-18)
[2024-04-24] MEDS: POTASSIUM CL. PREMIX PERIPHER. 50 ML IV SCH (09:54)
[2024-04-25] VITALS (35 sets, daily range): BP systolic 91–132; BP diastolic 40–62; TEMP 97.9–100.2; O2SAT 91–100
[2024-04-25 05:13] LABS: CALCIUM, SERUM 9.2 mg/dL (8.5-10.1); CARBON DIOXIDE 18 mmol/L (21-32); CHLORIDE 110 mmol/L (98-107); CREATININE 1.2 mg/dL (0.6-1.3); GLUCOSE 72 mg/dL (74-106); POTASSIUM 3.5 mmol/L (3.5-5.1); SODIUM SERUM 142 mmol/L (136-145); UREA NITROGEN, BLOOD 15 mg/dL (7-18)
[2024-04-25 08:53] LABS: BASOPHILS # (AUTO) 0.1 K/uL (0.0-0.2); BASOPHILS % (AUTO) 0.6 % (0.0-2.0); EOSINOPHILS # (AUTO) 0.3 K/uL (0.0-0.7); EOSINOPHILS % (AUTO) 2.5 % (0.0-6.0); HEMATOCRIT 32 % (39-51); HEMOGLOBIN 10.5 g/dL (13.5-17.5); LYMPHOCYTES # (AUTO) 0.8 K/uL (0.8-4.8); LYMPHOCYTES % (AUTO) 8.2 % (20.0-44.0); MEAN CORPUSCULAR HEMOGLOBIN 28 PG (26.0-33.0); MEAN CORPUSCULAR HGB CONC 33 g/dl (31.0-36.0); MEAN CORPUSCULAR VOLUME 85 fL (80-96); MONOCYTES # (AUTO) 1.1 K/uL (0.1-1.30); NEUTROPHILS # (AUTO) 7.8 K/uL (1.8-8.9); NEUTROPHILS % (AUTO) 77.7 % (43.0-81.0); PLATELET COUNT (AUTO) 182 K/uL (150-450); RED BLOOD CELL COUNT(AUTO) 3.78 MIL/uL (4.5-6.0); RED CELL DISTRIBUTION WIDTH 15.5 % (11.5-15.0); WHITE BLOOD COUNT (AUTO) 10.1 K/uL (4.3-11.0)
[2024-04-26] VITALS (36 sets, daily range): BP systolic 94–143; BP diastolic 45–67; TEMP 97.7–98.8; O2SAT 93–100
[2024-04-26 04:32] LABS: BASOPHILS # (AUTO) 0.1 K/uL (0.0-0.2); BASOPHILS % (AUTO) 0.5 % (0.0-2.0); EOSINOPHILS # (AUTO) 0.3 K/uL (0.0-0.7); EOSINOPHILS % (AUTO) 3.6 % (0.0-6.0); HEMATOCRIT 32 % (39-51); HEMOGLOBIN 10.7 g/dL (13.5-17.5); LYMPHOCYTES % (AUTO) 10.4 % (20.0-44.0); MEAN CORPUSCULAR HEMOGLOBIN 28 PG (26.0-33.0); MEAN CORPUSCULAR HGB CONC 34 g/dl (31.0-36.0); MEAN CORPUSCULAR VOLUME 84 fL (80-96); MONOCYTES # (AUTO) 1.1 K/uL (0.1-1.30); MONOCYTES % (AUTO) 11.9 % (2.0-12.0); NEUTROPHILS % (AUTO) 73.6 % (43.0-81.0); PLATELET COUNT (AUTO) 178 K/uL (150-450); RED BLOOD CELL COUNT(AUTO) 3.79 MIL/uL (4.5-6.0); RED CELL DISTRIBUTION WIDTH 15.5 % (11.5-15.0); WHITE BLOOD COUNT (AUTO) 9.6 K/uL (4.3-11.0)
[2024-04-26 04:59] LABS: CALCIUM, SERUM 9.3 mg/dL (8.5-10.1); CARBON DIOXIDE 19 mmol/L (21-32); CHLORIDE 109 mmol/L (98-107); CREATININE 1.1 mg/dL (0.6-1.3); GLUCOSE 77 mg/dL (74-106); MAGNESIUM 1.6 mg/dL (1.8-2.4); PHOSPHORUS 1.8 mg/dL (2.5-4.9); POTASSIUM 3.3 mmol/L (3.5-5.1); SODIUM SERUM 140 mmol/L (136-145); UREA NITROGEN, BLOOD 11 mg/dL (7-18)
[2024-04-26 07:07] LABS: *SPE A/G RATIO 0.9 (0.7-1.7); *SPE ALBUMIN 2.5 g/dL (2.9-4.4); *SPE ALPHA-1-GLOBULIN 0.4 g/dL (0.0-0.4); *SPE ALPHA-2-GLOBULIN 0.7 g/dL (0.4-1.0); *SPE BETA GLOBULIN 0.9 g/dL (0.7-1.3); *SPE GLOBULIN, TOTAL 2.7 g/dL (2.2-3.9); *SPE M-SPIKE Not Observed g/dL (Not Observed); *SPE PROTEIN TOTAL 5.2 g/dL (6.0-8.5); *SPEGAMMA GLOBULIN 0.7 g/dL (0.4-1.8)
[2024-04-26] MEDS: Magnesium 1GM/D5W 100ML PREMIX 100 ML IV SCH (10:14)
[2024-04-26] MEDS: POTASSIUM CL. PREMIX PERIPHER. 50 ML IV SCH (10:14)
[2024-04-26] MEDS: Sodium Phosphate 15 MMOL in IV NS 0.9% 245 ML IV ONE (15:25)
[2024-04-26] MEDS: JEVITY 1.2 CAL 1,000 ML BOTTLE GT PRN (21:54)
[2024-04-26] MEDS: ACETAMINOPHEN 325 MG TABLET PO PRN (23:22)
[2024-04-27] VITALS (40 sets, daily range): BP systolic 104–133; BP diastolic 46–78; TEMP 97.8–98.9; O2SAT 91–100
[2024-04-27] MEDS: PANTOPRAZOLE 40 MG/PACK PACK NG SCH (09:28)
[2024-04-27 09:34] LABS: CALCIUM, SERUM 9.7 mg/dL (8.5-10.1); CARBON DIOXIDE 21 mmol/L (21-32); CHLORIDE 111 mmol/L (98-107); GLUCOSE 90 mg/dL (74-106); POTASSIUM 3.2 mmol/L (3.5-5.1); SODIUM SERUM 142 mmol/L (136-145); UREA NITROGEN, BLOOD 8 mg/dL (7-18)
[2024-04-27] MEDS: NEUTRA PHOS 1 POWD.PACKET NG ONE (15:08)
[2024-04-28] VITALS (28 sets, daily range): BP systolic 102–142; BP diastolic 47–81; TEMP 97.9–98.8; O2SAT 92–100
[2024-04-28 04:59] LABS: BASOPHILS % (AUTO) 0.5 % (0.0-2.0); EOSINOPHILS # (AUTO) 0.5 K/uL (0.0-0.7); EOSINOPHILS % (AUTO) 5.6 % (0.0-6.0); HEMATOCRIT 33 % (39-51); HEMOGLOBIN 11.2 g/dL (13.5-17.5); LYMPHOCYTES % (AUTO) 11.6 % (20.0-44.0); MEAN CORPUSCULAR HEMOGLOBIN 28 PG (26.0-33.0); MEAN CORPUSCULAR HGB CONC 34 g/dl (31.0-36.0); MEAN CORPUSCULAR VOLUME 83 fL (80-96); MONOCYTES # (AUTO) 0.8 K/uL (0.1-1.30); MONOCYTES % (AUTO) 9.7 % (2.0-12.0); NEUTROPHILS # (AUTO) 6.2 K/uL (1.8-8.9); NEUTROPHILS % (AUTO) 72.6 % (43.0-81.0); PLATELET COUNT (AUTO) 233 K/uL (150-450); RED BLOOD CELL COUNT(AUTO) 3.99 MIL/uL (4.5-6.0); RED CELL DISTRIBUTION WIDTH 15.5 % (11.5-15.0); WHITE BLOOD COUNT (AUTO) 8.6 K/uL (4.3-11.0)
[2024-04-28 05:19] LABS: CALCIUM, SERUM 9.3 mg/dL (8.5-10.1); CARBON DIOXIDE 23 mmol/L (21-32); CHLORIDE 112 mmol/L (98-107); GLUCOSE 106 mg/dL (74-106); MAGNESIUM 1.8 mg/dL (1.8-2.4); PHOSPHORUS 1.6 mg/dL (2.5-4.9); POTASSIUM 3.2 mmol/L (3.5-5.1); SODIUM SERUM 144 mmol/L (136-145); UREA NITROGEN, BLOOD 8 mg/dL (7-18)
[2024-04-28] MEDS: ACETAMINOPHEN 650 MG/20.3 ML UDC NG PRN (08:11)
[2024-04-28] MEDS: POTASSIUM CHLORIDE 20 MEQ POWDER PACKET NG SCH (10:19)
[2024-04-28] MEDS: NEUTRA PHOS 1 POWD.PACKET NG ONE (16:33)
[2024-04-29] VITALS (18 sets, daily range): BP systolic 118–135; BP diastolic 58–67; TEMP 97.8–98.9; O2SAT 90–100
[2024-04-29 07:38] LABS: CALCIUM, SERUM 9.3 mg/dL (8.5-10.1); CARBON DIOXIDE 24 mmol/L (21-32); CHLORIDE 111 mmol/L (98-107); GLUCOSE 105 mg/dL (74-106); POTASSIUM 3.7 mmol/L (3.5-5.1); SODIUM SERUM 144 mmol/L (136-145); UREA NITROGEN, BLOOD 11 mg/dL (7-18)
[2024-04-30] VITALS (20 sets, daily range): BP systolic 96–127; BP diastolic 42–60; TEMP 98.1–99.3; O2SAT 91–100
[2024-04-30 08:03] LABS: CALCIUM, SERUM 9.4 mg/dL (8.5-10.1); CARBON DIOXIDE 26 mmol/L (21-32); CHLORIDE 109 mmol/L (98-107); GLUCOSE 98 mg/dL (74-106); POTASSIUM 3.5 mmol/L (3.5-5.1); SODIUM SERUM 140 mmol/L (136-145); UREA NITROGEN, BLOOD 12 mg/dL (7-18)
[2024-05-01] VITALS (20 sets, daily range): BP systolic 94–128; BP diastolic 50–65; TEMP 97.7–99.5; O2SAT 90–100
[2024-05-01 07:01] LABS: BASOPHILS % (AUTO) 0.3 % (0.0-2.0); EOSINOPHILS # (AUTO) 0.4 K/uL (0.0-0.7); EOSINOPHILS % (AUTO) 3.2 % (0.0-6.0); HEMATOCRIT 34 % (39-51); HEMOGLOBIN 11.4 g/dL (13.5-17.5); LYMPHOCYTES # (AUTO) 1.1 K/uL (0.8-4.8); LYMPHOCYTES % (AUTO) 8.8 % (20.0-44.0); MEAN CORPUSCULAR HEMOGLOBIN 28 PG (26.0-33.0); MEAN CORPUSCULAR HGB CONC 33 g/dl (31.0-36.0); MEAN CORPUSCULAR VOLUME 83 fL (80-96); MONOCYTES # (AUTO) 1.1 K/uL (0.1-1.30); MONOCYTES % (AUTO) 8.9 % (2.0-12.0); NEUTROPHILS # (AUTO) 9.8 K/uL (1.8-8.9); NEUTROPHILS % (AUTO) 78.8 % (43.0-81.0); PLATELET COUNT (AUTO) 247 K/uL (150-450); RED BLOOD CELL COUNT(AUTO) 4.12 MIL/uL (4.5-6.0); RED CELL DISTRIBUTION WIDTH 15.8 % (11.5-15.0); WHITE BLOOD COUNT (AUTO) 12.4 K/uL (4.3-11.0)
[2024-05-01 07:48] LABS: CALCIUM, SERUM 9.7 mg/dL (8.5-10.1); CARBON DIOXIDE 27 mmol/L (21-32); CHLORIDE 107 mmol/L (98-107); GLUCOSE 113 mg/dL (74-106); MAGNESIUM 2.2 mg/dL (1.8-2.4); PHOSPHORUS 2.7 mg/dL (2.5-4.9); SODIUM SERUM 141 mmol/L (136-145); UREA NITROGEN, BLOOD 18 mg/dL (7-18)
[2024-05-02] VITALS (16 sets, daily range): BP systolic 104–129; BP diastolic 58–67; TEMP 97.7–98.4; O2SAT 94–100
[2024-05-02 07:49] LABS: CALCIUM, SERUM 9.8 mg/dL (8.5-10.1); CARBON DIOXIDE 27 mmol/L (21-32); CHLORIDE 107 mmol/L (98-107); GLUCOSE 116 mg/dL (74-106); MAGNESIUM 2.3 mg/dL (1.8-2.4); PHOSPHORUS 2.7 mg/dL (2.5-4.9); POTASSIUM 3.9 mmol/L (3.5-5.1); SODIUM SERUM 140 mmol/L (136-145); UREA NITROGEN, BLOOD 18 mg/dL (7-18)
[2024-05-02 07:51] LABS: BASOPHILS % (AUTO) 0.3 % (0.0-2.0); EOSINOPHILS # (AUTO) 0.4 K/uL (0.0-0.7); EOSINOPHILS % (AUTO) 3.4 % (0.0-6.0); HEMATOCRIT 35 % (39-51); HEMOGLOBIN 11.4 g/dL (13.5-17.5); LYMPHOCYTES # (AUTO) 0.9 K/uL (0.8-4.8); LYMPHOCYTES % (AUTO) 7.6 % (20.0-44.0); MEAN CORPUSCULAR HEMOGLOBIN 27 PG (26.0-33.0); MEAN CORPUSCULAR HGB CONC 33 g/dl (31.0-36.0); MEAN CORPUSCULAR VOLUME 83 fL (80-96); MONOCYTES # (AUTO) 1.3 K/uL (0.1-1.30); NEUTROPHILS # (AUTO) 9.8 K/uL (1.8-8.9); NEUTROPHILS % (AUTO) 78.7 % (43.0-81.0); PLATELET COUNT (AUTO) 250 K/uL (150-450); RED BLOOD CELL COUNT(AUTO) 4.17 MIL/uL (4.5-6.0); RED CELL DISTRIBUTION WIDTH 15.9 % (11.5-15.0); WHITE BLOOD COUNT (AUTO) 12.5 K/uL (4.3-11.0)
[2024-05-02] MEDS: PIPERACILLIN /TAZOBACTAM 3.375 G in IV D5W 50 ML IV SCH (21:40)
[2024-05-03] VITALS (12 sets, daily range): BP systolic 90–114; BP diastolic 44–57; TEMP 97.5–98.6; O2SAT 96–100
[2024-05-03 12:32] LABS: BASOPHILS # (AUTO) 0.1 K/uL (0.0-0.2); BASOPHILS % (AUTO) 0.7 % (0.0-2.0); EOSINOPHILS # (AUTO) 0.3 K/uL (0.0-0.7); HEMATOCRIT 35 % (39-51); HEMOGLOBIN 11.5 g/dL (13.5-17.5); LYMPHOCYTES # (AUTO) 1.3 K/uL (0.8-4.8); MEAN CORPUSCULAR HEMOGLOBIN 28 PG (26.0-33.0); MEAN CORPUSCULAR HGB CONC 33 g/dl (31.0-36.0); MEAN CORPUSCULAR VOLUME 85 fL (80-96); MONOCYTES % (AUTO) 11.9 % (2.0-12.0); NEUTROPHILS # (AUTO) 5.6 K/uL (1.8-8.9); NEUTROPHILS % (AUTO) 67.4 % (43.0-81.0); PLATELET COUNT (AUTO) 272 K/uL (150-450); RED BLOOD CELL COUNT(AUTO) 4.08 MIL/uL (4.5-6.0); RED CELL DISTRIBUTION WIDTH 15.6 % (11.5-15.0); WHITE BLOOD COUNT (AUTO) 8.3 K/uL (4.3-11.0)
[2024-05-03 12:33] LABS: CALCIUM, SERUM 10.1 mg/dL (8.5-10.1); CARBON DIOXIDE 29 mmol/L (21-32); CHLORIDE 105 mmol/L (98-107); CREATININE 1.3 mg/dL (0.6-1.3); GLUCOSE 107 mg/dL (74-106); MAGNESIUM 2.4 mg/dL (1.8-2.4); PHOSPHORUS 3.4 mg/dL (2.5-4.9); POTASSIUM 4.2 mmol/L (3.5-5.1); SODIUM SERUM 140 mmol/L (136-145); UREA NITROGEN, BLOOD 19 mg/dL (7-18)
[2024-05-03] MEDS ORDERED: AMOX-427 PO (13:13)
== END 2024-05-03 16:20 | DRG 871 ==
LOC: ER 20:31 → TELE-TD 04-20 01:07 → ICU 04-20 10:50 → TELE-TD 04-28 11:35 → TELE1 05-02 08:47
PROVIDERS: ADMIT Nurse Practitioner Family; ATTEND Nurse Practitioner Family
PROC: 05HY33Z Insertion of Infusion Device into Upper Vein, Percutaneous Approach (ICD-10-PCS; principal; 2024-04-20)
DX: A41.9 Sepsis, unspecified organism (principal); G92.8 Other toxic encephalopathy; J96.01 Acute respiratory failure with hypoxia; J15.69 Pneumonia due to other Gram-negative bacteria; J69.0 Pneumonitis due to inhalation of food and vomit; I50.33 Acute on chronic diastolic (congestive) heart failure; N17.0 Acute kidney failure with tubular necrosis; E87.20 Acidosis, unspecified; L89.621 Pressure ulcer of left heel, stage 1; R65.20 Severe sepsis without septic shock; N40.0 Benign prostatic hyperplasia without lower urinary tract symptoms; N28.1 Cyst of kidney, acquired; Z87.440 Personal history of urinary (tract) infections; M89.8X9 Other specified disorders of bone, unspecified site; I25.10 Atherosclerotic heart disease of native coronary artery without angina pectoris; N18.9 Chronic kidney disease, unspecified; E86.0 Dehydration; I25.2 Old myocardial infarction; D64.9 Anemia, unspecified; F03.90 Unspecified dementia, unspecified severity, without behavioral disturbance, psychotic disturbance, mood disturbance, and anxiety
CPT/HCPCS: 31720; 36415; 36600; 71045-TC; 76770-TC; 80048-TC; 80053-TC; 80076-TC; 80202-TC; 81001; 82040-TC; 82550-TC; 82553; 82570-TC; 82803-TC; 83605-TC; 83735-TC; 83880; 83970; 84100-TC; 84155; 84165; 84300-TC; 84484-TC; 85025-TC; 85730-TC; 87040-TC; 87081-TC; 87086-TC; 92526; 92611-TC; 94760-TC; 94761-TC; 94762-TC; 94799-TC; 99082-TC; A4223; A9563; G0378; J0692; J1650; J2405; J2470; J2543; J3370; J3475; J3480; J7030; J7050; J7060